=== PATIENT | male | born 1965 | race Two or more races ===

== ENCOUNTER 2016-10-01 17:46 | Emergency (ER) | payer OTHER ==
[~2016-10-01] VITALS: Ht 167.6 cm; Wt 72.6 kg
[~2016-10-01 17:46] MED LIST: AUGMENTIN 875-1 EAC1 ORAL; TYLENOL EXTRA500 MG ORAL
[2016-10-01 18:19] VITALS: BP 128/78
[2016-10-01 18:51] LABS: EOSINOPHILS % (AUTO) 0.5 % (0.0-3.0); LYMPHOCYTES % (AUTO) 18.5 % (20.0-45.0); MEAN CORPUSCULAR HEMOGLOBIN 33.5 PG (27.0-31.0); MEAN CORPUSCULAR HGB CONC 37.3 G/DL (32.0-36.0); MEAN CORPUSCULAR VOLUME 90 FL (80-99); MEAN PLATELET VOLUME 6.8 FL (6.5-10.1); MONOCYTES % (AUTO) 8.2 % (1.0-10.0); NEUTROPHILS % (AUTO) 71.9 % (45.0-75.0); PLATELET COUNT 190 K/UL (150-450); RED BLOOD COUNT 4.13 M/UL (4.70-6.10); RED CELL DISTRIBUTION WIDTH 11.6 % (11.6-14.8); WHITE BLOOD COUNT 16.5 K/UL (4.8-10.8)
[2016-10-01 19:04] LABS: ALANINE AMINOTRANSFERASE 12 U/L (3-41); ALBUMIN/GLOBULIN RATIO 1.1 (1.0-2.7); ANION GAP 15 (5-15); ASPARTATE AMINO TRANSFERASE 13 U/L (5-40); CALCIUM 8.6 mg/dL (8.6-10.2); CARBON DIOXIDE 25 mEQ/L (20-30); CHLORIDE 95 mEQ/L (98-107); CREATININE 0.9 mg/dL (0.7-1.2); GLOMERULAR FILTRATION RATE > 60 mL/min (>60); HEMOLYSIS 4; POTASSIUM 4.2 mEQ/L (3.4-4.9); SODIUM 135 mEQ/L (135-145); TOTAL PROTEIN 6.8 g/dL (6.6-8.7)
[2016-10-01 19:07] LABS: REFLEX LACTIC ACID YES OR NO YES
[2016-10-01 19:13] LABS: APPEARANCE,URINE CLEAR; PH,URINE 5.5 (4.5-8.0)
[2016-10-01 19:14] LABS: CKMB < 1.5 ng/mL (< 6.7); LEUKOCYTE ESTERASE ,URINE TRACE (NEGATIVE); NITRITE,URINE NEGATIVE (NEGATIVE)
[2016-10-01 19:15] LABS: KETONES,URINE NEGATIVE (NEGATIVE); PROTEIN,URINE 1+ (NEGATIVE); UROBILINOGEN,URINE 1 MG/DL (0.0-1.0)
[2016-10-01] MEDS ORDERED: Morphine Sulfate 4mg/ml Inj IVP ONE (19:30)
[2016-10-01 19:36] LABS: BACTERIA,URINE FEW /HPF; SQUAMOUS EPITHELIAL CELL,UR FEW /LPF (NONE/OCC); WBC,URINE 15-20 /HPF (0 - 0)
[2016-10-01 20:27] VITALS: BP 126/60
--- NOTE | 2016-10-01 22:09 | Emergency Room Report ---
History of Present Illness General Chief Complaint: Back Pain-No Injury Source: Patient Present Illness HPI 51-year-old male presents to ED complaining of pain to the right side of the back x3 days. Denies trauma. Notes fevers and chills. Pain is sharp. Out of 10. Nonradiating. No other aggravating relieving factors. Denies dysuria or hematuria. Denies nausea or vomiting. Patient states he is a diabetic. No other aggravating or relieving factors. Denies any other associated symptoms Allergies: Coded Allergies: No Known Allergies (Verified Allergy, Mild, 10/16/07) Patient History Past Medical History: DM Past Surgical History: none Pertinent Family History: none Social History: Denies: alcohol use, drug use, smoking Immunizations: UTD Reviewed Nursing Documentation: PMH: Agreed, PSxH: Agreed Nursing Documentation-PMH Past Medical History: No History, Except For Hx Diabetes: Yes Review of Systems All Other Systems: negative except mentioned in HPI Physical Exam Vital Signs Date Time Temp Pulse Resp B/P Pulse Ox O2 Delivery O2 Flow Rate FiO2 10/01/16 17:59 98.4 88 20 139/80 98 Room Air Sp02 EP Interpretation: reviewed, normal General Appearance: no apparent distress, alert, GCS 15, non-toxic Head: normocephalic Eyes: bilateral eye PERRL, bilateral eye normal inspection ENT: normal ENT inspection Neck: normal inspection Respiratory: chest non-tender, lungs clear, normal breath sounds, speaking full sentences Cardiovascular #1: regular rate, rhythm, no edema Gastrointestinal: normal bowel sounds, non tender, soft, non-distended, no guarding, no rebound Rectal: deferred Genitourinary: no CVA tenderness Musculoskeletal: normal inspection Neurologic: alert, oriented x3, responsive, motor strength/tone normal, sensory intact, speech normal Psychiatric: normal inspection Skin: other - 4x4cm area of induration/erythema to R mid back. nonfluctuant. Lymphatic: normal inspection Medical Decision Making Diagnostic Impression: Primary Impression: Hyperglycemia Additional Impression: Cellulitis, trunk Qualified Codes: L03.312 - Cellulitis of back [any part except buttock] ER Course Hospital Course 75-year-old female presents to ED with redness, swelling to right posterior back. Fever. Elevated blood sugar Differential diagnoses include: Cellulitis, abscess, hyperglycemia, DKA Clinical course Patient placed on stretcher. After initial history and physical I ordered labs , blood Cx, UA, IVFs, CT Abd labs reviewed - leukocytosis, Hb/Hct stable, glucose elevated no DKA CT abdomen shows evidence of induration and stranding to the right posterior back but no evidence of abscess or gas. antibiotics given. Because of insurance patient will be transferred Diagnosis - hyperglycemia, cellulitis of trunk transferred in serious condition Labs Test 10/01/16 18:30 10/01/16 20:09 White Blood Count 16.5 K/UL (4.8-10.8) Red Blood Count 4.13 M/UL (4.70-6.10) Hemoglobin 13.8 G/DL (14.2-18.0) Hematocrit 37.1 % (42.0-52.0) Mean Corpuscular Volume 90 FL (80-99) Mean Corpuscular Hemoglobin 33.5 PG (27.0-31.0) Mean Corpuscular Hemoglobin Concent 37.3 G/DL (32.0-36.0) Red Cell Distribution Width 11.6 % (11.6-14.8) Platelet Count 190 K/UL (150-450) Mean Platelet Volume 6.8 FL (6.5-10.1) Neutrophils (%) (Auto) 71.9 % (45.0-75.0) Lymphocytes (%) (Auto) 18.5 % (20.0-45.0) Monocytes (%) (Auto) 8.2 % (1.0-10.0) Eosinophils (%) (Auto) 0.5 % (0.0-3.0) Basophils (%) (Auto) 1.0 % (0.0-2.0) Urine Color Yellow Urine Appearance Clear Urine pH 5.5 (4.5-8.0) Urine Specific [place] 1.010 (1.005-1.035) Urine Protein 1+ (NEGATIVE) Urine Glucose (UA) 4+ (NEGATIVE) Urine Ketones Negative (NEGATIVE) Urine Occult Blood Negative (NEGATIVE) Urine Nitrite Negative (NEGATIVE) Urine Bilirubin Negative (NEGATIVE) Urine Urobilinogen 1 MG/DL (0.0-1.0) Urine Leukocyte Esterase Trace (NEGATIVE) Urine RBC 2-4 /HPF (0 - 0) Urine WBC 15-20 /HPF (0 - 0) Urine Squamous Epithelial Cells Few /LPF (NONE/OCC) Urine Bacteria Few /HPF (NONE) Sodium Level 135 mEQ/L (135-145) Potassium Level 4.2 mEQ/L (3.4-4.9) Chloride Level 95 mEQ/L (98-107) Carbon Dioxide Level 25 mEQ/L (20-30) Anion Gap 15 (5-15) Blood Urea Nitrogen 18 mg/dL (7-23) Creatinine 0.9 mg/dL (0.7-1.2) Estimat Glomerular Filtration Rate > 60 mL/min (>60) Glucose Level 398 mg/dL (74-106) Lactic Acid Level 2.10 mmol/L (0.66-2.22) 1.70 mmol/L (0.66-2.22) Calcium Level 8.6 mg/dL (8.6-10.2) Total Bilirubin 0.5 mg/dL (0.0-1.2) Aspartate Amino Transf (AST/SGOT) 13 U/L (5-40) Alanine Aminotransferase (ALT/SGPT) 12 U/L (3-41) Alkaline Phosphatase 100 U/L (40-129) Creatine Kinase MB < 1.5 ng/mL (< 6.7) Total Protein 6.8 g/dL (6.6-8.7) Albumin 3.6 g/dL (3.5-5.2) Globulin 3.2 g/dL Albumin/Globulin Ratio 1.1 (1.0-2.7) Acetone Level Negative (NEGATIVE) CT/MRI/US Diagnostic Results CT/MRI/US Diagnostic Results : Imaging Test Ordered: CT Abd Impression Stranding/induration of the right posterior back centered into subcutaneous tissue. No drainable abscess or soft tissue gas at this time Last Vital Signs Date Time Temp Pulse Resp B/P Pulse Ox O2 Delivery O2 Flow Rate FiO2 10/01/16 18:19 98.2 78 18 128/78 99 Room Air Status: improved Disposition: XFER SHT-TRM HOSP Condition: Serious Referrals: [facility],REFERR[facility] (PCP) RON REBOLLAR M.D. Oct 01, 2016 22:09
--- NOTE | 2016-10-02 09:11 | Diagnostic Imaging Report ---
Indications: Pain, swelling, erythema right mid back Technique: Continuous helical CT imaging of the abdomen was performed with automatic exposure control following administration of nonionic IV contrast only, on a Siemens sensation [address] scanner. Axial and coronal images were reconstructed at 5 mm slice thickness. No oral contrast was administered per requesting physician's order, . CTDI volume(s): 18 mGy Total DLP: 724 mGy-cm Findings: Comparison: None The subcutaneous soft tissues of the posterior right flank beginning at approximately the level of T10-11 and extending to approximately the L3-4 level are asymmetrically swollen and increased in attenuation with an approximately 6 x 2 x 5 cm area of somewhat circumscribed increased density. Thin curvilinear focus of increased density traverses the area of abnormality in a radial orientation (3-27). No associated gas. Overlying skin thickened. Process extends to the margin of the right posterior paraspinous musculature. Muscular involvement not excludable. No extension to underlying retroperitoneum. Remainder of the bowel wall soft tissues unremarkable. Subcentimeter circumscribed low attenuation foci right renal cortex up further characterizable. Liver, gallbladder, pancreas, spleen, adrenal glands, left kidney, unopacified small ureters, vascular structures, retroperitoneum, mesentery, imaged unopacified portions of gastrointestinal tract, remainder visualized abdominal anatomy is remarkable. Small irregular pleural-based linear and patchy opacities in the dependent portions both lung bases. No adjacent pleural abnormality. Multilevel disc space narrowing with marginal osteophyte formation, vacuum phenomenon and lumbar, lower thoracic spine. Suggestion of significant spinal stenosis at L4-5. No fracture or, lytic destructive process or other acute skeletal abnormality identified. IMPRESSION: Nonspecific, almost masslike increased attenuation in the subcutaneous soft tissues of posterior right flank, may be traumatic, inflammatory, or a combination. No discretely definable abscess demonstrated at this time. Associated linear focus of increased attenuation as described, nonspecific, may represent residuum of penetrating trauma. Correlate clinically. Involvement of underlying right posterior paraspinous musculature not excludable. No other evidence of acute abdominal disease, with limitation as described. Subtle but potentially significant abnormalities may be missed. Repeat CT scan with full oral and IV contrast preparation recommended for more complete evaluation, as clinically indicated Right renal cortical foci nonspecific, most likely cysts Pulmonary bibasal parenchymal opacities, nonspecific, most likely atelectatic Degenerative spondylosis with apparent spinal stenosis at L4-[address] Bustillo's preliminary report.
== END 2016-10-01 20:27 | disposition short-term general hospital (02) ==
LOC: EMR 18:28
DX: L03.312 Cellulitis of back [any part except buttock and flank] (principal); E11.65 Type 2 diabetes mellitus with hyperglycemia; D72.829 Elevated white blood cell count, unspecified
CPT/HCPCS: 36415; 74160; 80053; 81003; 82009; 82553; 82962; 83605; 85025; 87040; 87086; 96361; 96374; 96375; 99285; J2270; Q9967; S0077

== ENCOUNTER 2016-10-24 18:26 | Emergency (ER) | payer OTHER ==
[~2016-10-24] VITALS: Ht 167.6 cm; Wt 80.7 kg
[2016-10-24 18:32] VITALS: BP 116/70
[2016-10-24] MEDS ORDERED: LANTUS SOL100 UNIT/1 SUBQ (18:36)
[2016-10-24] MEDS ORDERED: Lidocaine 2% Visc 15ml soln ORAL ONE (19:00)
--- NOTE | 2016-10-24 20:24 | Emergency Room Report ---
History of Present Illness General Chief Complaint: Sore Throat Source: Patient Present Illness HPI 2 days of throat pain. Pain with swallowing which is severe. Slight change in voice. Able to tolerate liquids. Some fever and myalgias. No productive cough. No NVD, dysuria. No rashes. Mild headache. No chest pain. States glucose is "normal". Takes lantis once at night. No polies. Allergies: Coded Allergies: No Known Allergies (Verified Allergy, Mild, 10/16/07) Patient History Past Medical History: see triage record Social History: Denies: smoking Social History Narrative employed Reviewed Nursing Documentation: PMH: Agreed, PSxH: Agreed Nursing Documentation-PMH Past Medical History: No History, Except For Hx Diabetes: Yes Review of Systems All Other Systems: negative except mentioned in HPI Physical Exam Vital Signs Date Time Temp Pulse Resp B/P Pulse Ox O2 Delivery O2 Flow Rate FiO2 10/24/16 18:32 98.4 87 16 116/70 97 Room Air Sp02 EP Interpretation: reviewed, normal General Appearance: well appearing, no apparent distress, GCS 15 Head: normocephalic Eyes: bilateral eye PERRL, bilateral eye normal inspection ENT: hearing grossly normal, normal voice, TMs + canals normal, uvula midline, moist mucus membranes, tonsillar swelling, pharyngeal erythema, other - 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 Neck: full range of motion, supple, no bony tend Respiratory: chest non-tender, lungs clear, normal breath sounds Cardiovascular #1: regular rate, rhythm Cardiovascular #2: 2+ radial (R) Gastrointestinal: normal inspection, non tender, soft Musculoskeletal: back normal, gait/station normal, normal range of motion Neurologic: alert, oriented x3, grossly normal Psychiatric: mood/affect normal Skin: normal inspection, warm/dry Medical Decision Making Diagnostic Impression: Primary Impression: Pharyngitis Qualified Codes: J02.9 - Acute pharyngitis, unspecified Additional Impression: Hyperglycemia ER Course Patient with severe throat pain and fever. DDx: viral, strep. 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 As diabetic, need to check accucheck. Also, patient will be treated with antibiotics and decadron. Will give trial of viscous lidocaine. More complicated as h/o diabetes. Accucheck 342 here. Given NovoLog here. As giving steroids, advised that glucose might be elevated. Improved with treatment with decreased pain. Patient stable for outpatient observation and treatment. EKG Diagnostic Results ST Segments: other - NSSTTW changes, not STEMI Rhythm Strip Diag. Results EP Interpretation: yes Rhythm: no ectopy Last Vital Signs Date Time Temp Pulse Resp B/P Pulse Ox O2 Delivery O2 Flow Rate FiO2 10/24/16 20:41 84 14 114/74 96 Room Air 10/24/16 18:32 98.4 Status: improved Disposition: HOME, SELF-CARE Condition: Improved Scripts Ibuprofen* (MOTRIN*) 600 Mg Tablet 600 MG ORAL Q6H Y for For Pain, #12 TAB Prov: Phill Cisneros M.D. 10/24/16 Lidocaine HCl (Lidocaine HCl Viscous) 100 Ml Solution 10 ML PO Q6HR Y for throat pain, #60 ML Prov: Phill Cisneros M.D. 10/24/16 Amoxicillin/Potassium Clav 500-125 Tablet* (AUGMENTIN 500-125 TABLET*) 1 Each Tablet 1 TAB ORAL THREE TIMES A DAY, #21 TAB Prov: Phill Cisneros M.D. 10/24/16 Referrals: [facility],REFERR[facility] (PCP) Phill Cisneros M.D. Oct 24, 2016 20:24
[2016-10-24] MEDS ORDERED: LIDOCAINE VISCO20 ML PO (20:31)
[2016-10-24] MEDS ORDERED: IBUPROFEN600 MG ORAL (20:31)
[2016-10-24] MEDS ORDERED: AUGMENTIN 500-1 EACH ORAL (20:31)
[2016-10-24 20:41] VITALS: BP 114/74
== END 2016-10-24 20:41 | disposition home or self-care (01) ==
LOC: EMR 19:34
DX: J02.9 Acute pharyngitis, unspecified (principal); E11.65 Type 2 diabetes mellitus with hyperglycemia
CPT/HCPCS: 82962; 99284; J1815; J8540

== ENCOUNTER 2017-02-07 16:31 | Inpatient (IN) | payer OTHER ==
[~2017-02-07] VITALS: Ht 167.6 cm; Wt 78.5 kg
[~2017-02-07 16:31] MED LIST changes: +AUGMENTIN 500-1 EACH ORAL; +IBUPROFEN600 MG ORAL; +LANTUS SOL100 UNIT/1 SUBQ; +LIDOCAINE VISCO20 ML PO
[2017-02-07] MEDS ORDERED: Vancomycin 1.5 GM in D5W 325 ML IVPB STA (16:40)
[2017-02-07] MEDS ORDERED: Piperacillin/Tazobactam 3.375 GM in NS 110 ML IVPB ONE (16:45)
[2017-02-07 17:25] VITALS: BP 142/82
[2017-02-07] MEDS ORDERED: fentaNYL 100 mcg/2 mL IV ONE (17:30)
[2017-02-07] MEDS ORDERED: Vancomycin 1gm inj IVPB ONE (17:35)
--- NOTE | 2017-02-07 17:35 | Emergency Room Report ---
History of Present Illness General Chief Complaint: Abnormal Labs Source: Patient Present Illness HPI 51YOM walk-in with 2 days abd pain, fever/chills, nausea/vomiting. Didnt take Insulin/metformin for 1 week because "ran out of prescription." Denies chest pain, SOB, headache, urinary complaints, diarrhea. Sent by PMD for "glucose >2000" and abd pain with "+ obturator and psoas sign." Allergies: Coded Allergies: No Known Allergies (Verified Allergy, Mild, 10/16/07) Patient History Past Medical History: DM, HTN, other - HLD Past Surgical History: none Pertinent Family History: none Social History: Denies: alcohol use, drug use, smoking Immunizations: UTD Reviewed Nursing Documentation: PMH: Agreed, PSxH: Agreed Nursing Documentation-PMH Hx Diabetes: Yes Review of Systems All Other Systems: negative except mentioned in HPI Physical Exam Vital Signs Date Time Temp Pulse Resp B/P Pulse Ox O2 Delivery O2 Flow Rate FiO2 02/07/17 16:39 101.3 101 24 115/62 93 Room Air Sp02 EP Interpretation: reviewed, abnormal General Appearance: normal inspection, well appearing, no apparent distress, alert, GCS 15, non-toxic Head: normocephalic, atraumatic Eyes: bilateral eye EOMI, bilateral eye PERRL ENT: normal ENT inspection, hearing grossly normal, normal voice Neck: normal inspection, full range of motion, supple, no bony tend Respiratory: normal inspection, lungs clear, normal breath sounds, no respiratory distress, no retraction, no wheezing Cardiovascular #1: regular rate, rhythm, no edema Gastrointestinal: normal inspection, normal bowel sounds, soft, no guarding, no hernia, other - epigastric ttp Genitourinary: no CVA tenderness Musculoskeletal: normal inspection, back normal, normal range of motion, Summer' s Sign negative Neurologic: normal inspection, alert, oriented x3, responsive, environmental remediation consultant III-XII nml as tested, motor strength/tone normal, DTRs symmetric, speech normal Psychiatric: normal inspection, judgement/insight normal, mood/affect normal Skin: normal inspection, normal color, no rash Lymphatic: normal inspection Medical Decision Making Diagnostic Impression: Primary Impression: Hyperglycemia Additional Impression: Fever Qualified Codes: R50.9 - Fever, unspecified ER Course Fever - Tachycardia resolved with anaglesia, IVF, Abx - No obvious source on CXR, UA and CTAP - No leuks on lab - Empiric Abx given - Blood, Urine Cx pending Hyperglycemia - bicarb, K normal - Mild AG - Insulin and NS given ECG is NSR. Trop 0. Endorsed to Dr Arias at 713pm for tele admission EKG Diagnostic Results Rate: normal Rhythm: NSR ST Segments: no acute changes ASA given to the pt in ED: No Rhythm Strip Diag. Results EP Interpretation: yes Rate: 90 Rhythm: NSR, no PVC's, no ectopy Chest X-Ray Diagnostic Results Chest X-Ray Ordered: Yes # of Views/Limited/Complete: 1 View Interpretation: no consolidation Indication: Other - fever Impression: No acute disease Date Electronically Signed: Feb 07, 2017 Time Electronically Signed: 19:13 Interpreting ER Physician: Julissa Last Vital Signs Date Time Temp Pulse Resp B/P Pulse Ox O2 Delivery O2 Flow Rate FiO2 02/07/17 16:39 101.3 101 24 115/62 93 Room Air Status: improved Disposition: ADMITTED INPATIENT Condition: Serious ANNABELLE REYNOSO M.D. Feb 07, 2017 17:35
[2017-02-07] MEDS ORDERED: Zosyn 3.375gm inj ONE (17:36)
[2017-02-07 17:40] LABS: APPEARANCE,URINE CLEAR; KETONES,URINE 2+ (NEGATIVE); LEUKOCYTE ESTERASE ,URINE 1+ (NEGATIVE); NITRITE,URINE NEGATIVE (NEGATIVE); PH,URINE 5 (4.5-8.0); PROTEIN,URINE 2+ (NEGATIVE); UROBILINOGEN,URINE NORMAL MG/DL (0.0-1.0)
[2017-02-07 17:47] LABS: BASOPHILS % (AUTO) 2.4 % (0.0-2.0); EOSINOPHILS % (AUTO) 0.6 % (0.0-3.0); LYMPHOCYTES % (AUTO) 20.3 % (20.0-45.0); MEAN CORPUSCULAR HEMOGLOBIN 31.1 PG (27.0-31.0); MEAN CORPUSCULAR HGB CONC 35.3 G/DL (32.0-36.0); MEAN CORPUSCULAR VOLUME 88 FL (80-99); MONOCYTES % (AUTO) 11.8 % (1.0-10.0); NEUTROPHILS % (AUTO) 64.9 % (45.0-75.0); PLATELET COUNT 115 K/UL (150-450); RED CELL DISTRIBUTION WIDTH 11.3 % (11.6-14.8)
[2017-02-07 17:55] LABS: TROPONIN I < 0.30 ng/mL (<=0.30)
[2017-02-07 17:56] LABS: ALANINE AMINOTRANSFERASE 30 U/L (3-41); ALBUMIN/GLOBULIN RATIO 1.1 (1.0-2.7); ANION GAP 19 (5-15); ASPARTATE AMINO TRANSFERASE 33 U/L (5-40); CALCIUM 8.1 mg/dL (8.6-10.2); CARBON DIOXIDE 20 mEQ/L (20-30); CHLORIDE 88 mEQ/L (98-107); GLOMERULAR FILTRATION RATE > 60 mL/min (>60); HEMOLYSIS 49; LIPASE 35 U/L (< 60); SODIUM 127 mEQ/L (135-145)
[2017-02-07 18:17] LABS: RBC,URINE 0-2 /HPF (0 - 0); WBC,URINE 0-2 /HPF (0 - 0)
[2017-02-07 18:18] LABS: SQUAMOUS EPITHELIAL CELL,UR FEW /LPF (NONE/OCC)
[2017-02-07 19:25] VITALS: BP 137/79
[2017-02-07] MEDS ORDERED: Ketorolac 30mg Inj IV PRN (19:30)
[2017-02-07] MEDS ORDERED: Miralax 17gm pkt ORAL PRN (19:30)
[2017-02-07] MEDS ORDERED: Nitroglycerin Subl 0.4mg tab (Bottle Of 25) SL PRN (19:30)
[2017-02-07] MEDS ORDERED: Mylanta II UD 30ml ORAL PRN (19:30)
[2017-02-07] MEDS ORDERED: DuoNeb 0.5-3(2.5)mg/3ml neb HHN PRN (19:30)
[2017-02-07] MEDS ORDERED: Morphine Sulfate 2mg/ml Inj IVP PRN (19:30)
[2017-02-07 20:39] VITALS: BP 150/76
[2017-02-07] MEDS: Heparin 5000 units/ml inj SUBQ SCH (21:00)
[2017-02-07 22:37] VITALS: BP 140/80
[2017-02-07] MEDS: NovoLOG Insulin Flexpen SUBQ SCH (23:32)
[2017-02-07] MEDS: cefTRIAXone 2 GM in NS 110 ML IV SCH (23:53)
[2017-02-08] VITALS: BP 144/84
[2017-02-08 04:00] VITALS: BP 127/69
[2017-02-08] MEDS: NovoLOG Insulin Flexpen SUBQ SCH ×4 (06:34→21:58)
[2017-02-08 06:42] LABS: MEAN CORPUSCULAR HEMOGLOBIN 32.4 PG (27.0-31.0); MEAN CORPUSCULAR HGB CONC 36.4 G/DL (32.0-36.0); MEAN CORPUSCULAR VOLUME 89 FL (80-99); MEAN PLATELET VOLUME 7.8 FL (6.5-10.1); PLATELET COUNT 94 K/UL (150-450); RED BLOOD COUNT 4.16 M/UL (4.70-6.10); RED CELL DISTRIBUTION WIDTH 11.4 % (11.6-14.8); WHITE BLOOD COUNT 4.5 K/UL (4.8-10.8)
[2017-02-08 07:13] LABS: HEMOGLOBIN A1C 11.2 % (< 6.0)
[2017-02-08 07:19] LABS: ALANINE AMINOTRANSFERASE 26 U/L (3-41); ALBUMIN/GLOBULIN RATIO 1.2 (1.0-2.7); ANION GAP 16 (5-15); ASPARTATE AMINO TRANSFERASE 28 U/L (5-40); CALCIUM 7.7 mg/dL (8.6-10.2); CARBON DIOXIDE 22 mEQ/L (20-30); CHLORIDE 96 mEQ/L (98-107); CHOLESTEROL 125 mg/dL (< 200); CHOLESTEROL/HDL RATIO 4.5 (3.3-4.4); CREATININE 0.9 mg/dL (0.7-1.2); GLOMERULAR FILTRATION RATE > 60 mL/min (>60); HEMOLYSIS 5; LDL CHOLESTEROL (CALC.) 65 mg/dL (60-99); POTASSIUM 3.7 mEQ/L (3.4-4.9); SODIUM 134 mEQ/L (135-145); TOTAL PROTEIN 6.5 g/dL (6.6-8.7)
[2017-02-08 07:20] LABS: THYROID STIMULATING HORMONE 0.361 uIU/mL (0.300-4.500)
[2017-02-08 08:00] VITALS: BP 132/70
[2017-02-08] MEDS: Heparin 5000 units/ml inj SUBQ SCH ×2 (08:01→21:00)
--- NOTE | 2017-02-08 09:29 | Diagnostic Imaging Report ---
Indication: Abdominal pain Technique: CT of the abdomen and pelvis utilizing automated exposure control with intravenous contrast. Venous scanning performed. CT dose: Total DLP 1026 mGycm; CTDI vol 18.2 mGy Comparison: 10/01/16 Findings: There is atelectasis in the lung bases. The liver, adrenal glands, spleen and pancreas are grossly unremarkable. Gallbladder is mildly contracted without CT evident gallstones. Tiny hypodensity of the right renal cortex measuring 4 mm this too small to characterize but unchanged. Small areas of apparent cortical scarring are noted in the bilateral kidneys. There is no hydronephrosis. No renal or ureteral calculi are seen. Abdominal aorta is normal in caliber. The small bowel loops are normal in caliber. The appendix is normal. There is no free intraperitoneal fluid or air. Bladder is grossly unremarkable. Subcutaneous stranding of the right flank has decreased. No gross soft tissue fluid collections are identified. Degenerative changes of the spine are again present. Impression: Interval improvement with minimal residual of stranding involving the subcutaneous soft tissues of the right flank. No drainable soft tissue fluid collection. Clinical correlation recommended. Stable intra-abdominal appearance as above. Lung base atelectasis. Degenerative changes of the spine. The CT scanner at [facility] is accredited by the [employer] and the scans are performed using protocols designed to limit radiation exposure to as low as reasonably achievable to attain images of sufficient resolution adequate for diagnostic evaluation.
--- NOTE | 2017-02-08 09:40 | Diagnostic Imaging Report ---
Indication: Chest pain Technique: XRAY CHEST 1 V Comparison: 04/30/12 Findings: The cardiomediastinal silhouette is within normal limits. There is no focal consolidation, pneumothorax or pleural effusion. Osseous structures demonstrate no acute abnormality. Impression: No acute cardiopulmonary disease.
[2017-02-08 12:00] VITALS: BP 112/67
--- NOTE | 2017-02-08 12:38 | History and Physical ---
History of Present Illness General Date patient seen: Feb 08, 2017 Time patient seen: 11:30 Reason for Hospitalization: Abnormal Labs Present Illness HPI 51y/old patient walked-in with 2 days of abdominal pain, fever/chills, nausea/ vomiting. No BM for 2 days Didn't take Insulin/metformin for 1 week because he "ran out of prescription." Denied chest pain, SOB, headache, urinary complaints, diarrhea. Sent by PMD for "glucose >2000" and abd pain with "+ obturator and psoas sign." Workup in ED revealed fever 102, tachypnea, tachycardia, no leukocytosis Na-127 BS -369, stable bicarb, mild elevation in anion gap, +2 ketones in urine, K stable UA negative for evidence of UTI, CXR negative for acute cardiopulmonary pathology CTAP-Interval improvement with minimal residual of stranding involving the subcutaneous soft tissues of the right flank. No drainable soft tissue fluid collection. No evidence of appy- Lung base atelectasis. patient was given IVF, pancultured, started on empiric abx, analgesia provided in ED tachycardia resolved troponin negative ECG with NSR, no ischemic changes patient was admitted for further management Allergies: Coded Allergies: No Known Allergies (Verified Allergy, Mild, 10/16/07) Medication History Scheduled Amoxicillin/Potassium Clav 500-125 Tablet* (Augmentin 500-125 Tablet*), 1 TAB ORAL THREE TIMES A DAY Amoxicillin/Potassium Clav 875-125* (Augmentin 875-125 Tablet*), 1 TAB ORAL TWICE A DAY Insulin Glargine (Lantus), 20 UNITS SUBQ BEDTIME, (Reported) Scheduled PRN Acetaminophen* (Tylenol Extra Strength*), 500 MG ORAL Q8H PRN for Prn Headache/ Temp > 101 Ibuprofen* (Motrin*), 600 MG ORAL Q6H PRN for For Pain Lidocaine HCl (Lidocaine HCl Viscous), 10 ML PO Q6HR PRN for throat pain Patient History Healthcare decision maker Resuscitation status Full Code Advanced Directive on File Past Medical/Surgical History Past Medical/Surgical History: (1) Hyperlipidemia (2) Diabetes (3) HTN (hypertension) Review of Systems Constitutional: Reports: fever Eye: Reports: no symptoms ENT: Reports: no symptoms Respiratory: Reports: no symptoms Cardiovascular: Reports: other - hx of HTN Gastrointestinal: Reports: see HPI Genitourinary: Reports: no symptoms Musculoskeletal: Reports: no symptoms Skin: Reports: no symptoms Psychiatric: Reports: no symptoms Neurological: Reports: no symptoms Endocrine: Reports: other - diabetes Hematologic/Lymphatic: Reports: no symptoms Physical Exam General Appearance: WD/WN, no apparent distress, alert - A/A/O x 3 Lines, tubes and drains: peripheral HEENT: normocephalic, atraumatic, anicteric, PERRL Neck: non-tender, supple Respiratory/Chest: chest wall non-tender, lungs clear, no respiratory distress , no accessory muscle use Cardiovascular/Chest: regular rhythm, regularly irregular, no JVD Abdomen: normal bowel sounds, soft - mild tenderness in epigastric area 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, no motor/sensory deficits, alert, oriented x 3, responsive - Hungarian speaking , normal mood/affect Musculoskeletal: normal muscle bulk Last 24 Hour Vital Signs Date Time Temp Pulse Resp B/P Pulse Ox O2 Delivery O2 Flow Rate FiO2 02/08/17 09:21 100.4 02/08/17 08:00 100.8 78 18 132/70 Nasal Cannula 2.0 02/08/17 08:00 85 02/08/17 07:31 86 18 Room Air 02/08/17 04:00 100.2 82 20 127/69 96 Room Air 82 02/08/17 04:00 85 02/08/17 00:00 100.6 88 20 144/84 96 Room Air 02/07/17 23:07 91 02/07/17 22:40 82 20 140/80 95 Room Air 02/07/17 22:37 99.4 82 20 140/80 95 Room Air 02/07/17 20:39 85 21 150/76 96 Room Air 02/07/17 19:25 99.0 71 20 137/79 97 Room Air 02/07/17 19:20 85 18 Room Air 02/07/17 17:25 102.0 80 15 142/82 97 Room Air 02/07/17 16:39 101.3 101 24 115/62 93 Room Air Intake and Output 02/07/17 02/08/17 19:00 07:00 Intake Total 820 ml Output Total 1100 ml Balance -280 ml Intake Oral 0 ml IV Total 820 ml Output Urine Total 1100 ml # Voids 1 Laboratory Tests Test 02/07/17 17:16 02/08/17 04:45 White Blood Count 5.0 K/UL (4.8-10.8) 4.5 K/UL (4.8-10.8) L Red Blood Count 4.30 M/UL (4.70-6.10) L 4.16 M/UL (4.70-6.10) L Hemoglobin 13.4 G/DL (14.2-18.0) L 13.5 G/DL (14.2-18.0) L Hematocrit 37.9 % (42.0-52.0) L 37.1 % (42.0-52.0) L Mean Corpuscular Volume 88 FL (80-99) 89 FL (80-99) Mean Corpuscular Hemoglobin 31.1 PG (27.0-31.0) H 32.4 PG (27.0-31.0) H Mean Corpuscular Hemoglobin Concent 35.3 G/DL (32.0-36.0) 36.4 G/DL (32.0-36.0) H Red Cell Distribution Width 11.3 % (11.6-14.8) L 11.4 % (11.6-14.8) L Platelet Count 115 K/UL (150-450) L 94 K/UL (150-450) L Mean Platelet Volume 7.0 FL (6.5-10.1) 7.8 FL (6.5-10.1) Neutrophils (%) (Auto) 64.9 % (45.0-75.0) % (45.0-75.0) Lymphocytes (%) (Auto) 20.3 % (20.0-45.0) % (20.0-45.0) Monocytes (%) (Auto) 11.8 % (1.0-10.0) H % (1.0-10.0) Eosinophils (%) (Auto) 0.6 % (0.0-3.0) % (0.0-3.0) Basophils (%) (Auto) 2.4 % (0.0-2.0) H % (0.0-2.0) Urine Color Pale yellow Urine Appearance Clear Urine pH 5 (4.5-8.0) Urine Specific [place] 1.015 (1.005-1.035) Urine Protein 2+ (NEGATIVE) H Urine Glucose (UA) 4+ (NEGATIVE) H Urine Ketones 2+ (NEGATIVE) H Urine Occult Blood 1+ (NEGATIVE) H Urine Nitrite Negative (NEGATIVE) Urine Bilirubin Negative (NEGATIVE) Urine Urobilinogen Normal MG/DL (0.0-1.0) Urine Leukocyte Esterase 1+ (NEGATIVE) H Urine RBC 0-2 /HPF (0 - 0) H Urine WBC 0-2 /HPF (0 - 0) Urine Squamous Epithelial Cells Few /LPF (NONE/OCC) Urine Bacteria None /HPF (NONE) Sodium Level 127 mEQ/L (135-145) L 134 mEQ/L (135-145) L Potassium Level 4.0 mEQ/L (3.4-4.9) 3.7 mEQ/L (3.4-4.9) Chloride Level 88 mEQ/L (98-107) L 96 mEQ/L (98-107) L Carbon Dioxide Level 20 mEQ/L (20-30) 22 mEQ/L (20-30) Anion Gap 19 (5-15) H 16 (5-15) H Blood Urea Nitrogen 20 mg/dL (7-23) 13 mg/dL (7-23) Creatinine 1.0 mg/dL (0.7-1.2) 0.9 mg/dL (0.7-1.2) Estimat Glomerular Filtration Rate > 60 mL/min (>60) > 60 mL/min (>60) Glucose Level 369 mg/dL (74-106) H 258 mg/dL (74-106) #H Lactic Acid Level 1.40 mmol/L (0.66-2.22) Calcium Level 8.1 mg/dL (8.6-10.2) L 7.7 mg/dL (8.6-10.2) L Total Bilirubin 0.4 mg/dL (0.0-1.2) 0.3 mg/dL (0.0-1.2) Aspartate Amino Transf (AST/SGOT) 33 U/L (5-40) 28 U/L (5-40) Alanine Aminotransferase (ALT/SGPT) 30 U/L (3-41) 26 U/L (3-41) Alkaline Phosphatase 98 U/L (40-129) 78 U/L (40-129) Troponin I < 0.30 ng/mL (<=0.30) Total Protein 7.0 g/dL (6.6-8.7) 6.5 g/dL (6.6-8.7) L Albumin 3.7 g/dL (3.5-5.2) 3.6 g/dL (3.5-5.2) Globulin 3.3 g/dL 2.9 g/dL Albumin/Globulin Ratio 1.1 (1.0-2.7) 1.2 (1.0-2.7) Lipase 35 U/L (< 60) Hemoglobin A1c 11.2 % (< 6.0) H Triglycerides Level 158 mg/dL (< 150) H Cholesterol Level 125 mg/dL (< 200) LDL Cholesterol 65 mg/dL (60-99) HDL Cholesterol 28 mg/dL (> 60) Cholesterol/HDL Ratio 4.5 (3.3-4.4) H Thyroid Stimulating Hormone (TSH) 0.361 uIU/mL (0.300-4.500) Height (Feet): 5 Height (Inches): 6.00 Weight (Pounds): 173 Medications Current Medications Medications (Trade) Dose Ordered Sig/Lm Route PRN Reason Start Time Stop Time Status Last Admin Dose Admin Acetaminophen (Tylenol) 650 mg Q4H PRN ORAL fever 02/07/17 19:30 03/09/17 19:29 02/08/17 08:22 Al Hydroxide/Mg Hydroxide (Mylanta II) 30 ml Q6H PRN ORAL dyspepsia 02/07/17 19:30 03/09/17 19:29 Albuterol/ Ipratropium (DuoNeb 0.5-3(2.5)mg/3ml) 3 ml Q4H PRN HHN Shortness of Breath 02/07/17 19:30 02/12/17 19:29 Ceftriaxone Sodium/Sodium Chloride (Rocephin/Sodium Chloride) 110 ml @ 220 mls/hr Q24H IV 02/07/17 21:00 02/14/17 20:59 02/07/17 23:53 Clonidine HCl 0.1 mg 0.1 mg Q4H PRN ORAL sbp more than 160 02/07/17 19:30 03/09/17 19:29 Dextrose (Dextrose 50%) STAT PRN IV Hypoglycemia 02/07/17 19:30 03/09/17 19:29 Heparin Sodium (Porcine) (Heparin 5000 units/ml) 5,000 units EVERY 12 HOURS SUBQ 02/07/17 21:00 03/09/17 20:59 Insulin Aspart (NovoLOG) BEFORE MEALS AND HS SUBQ 02/07/17 21:00 03/09/17 20:59 02/08/17 11:58 Ketorolac Tromethamine (Toradol 30mg) 30 mg Q6H PRN IV moderate pain 4-6 02/07/17 19:30 02/12/17 19:29 Morphine Sulfate (Morphine Sulfate) 2 mg Q4H PRN IVP severe pain 7-10 02/07/17 19:30 02/14/17 19:29 Nitroglycerin (Ntg) 0.4 mg Q5M X 3 DOSES PRN SL Prn Chest Pain 02/07/17 19:30 03/09/17 19:29 Ondansetron HCl (Zofran) 4 mg Q6H PRN IVP Nausea & Vomiting 02/07/17 19:30 03/09/17 19:29 Polyethylene Glycol (Miralax) 17 gm HSPRN PRN ORAL Constipation 02/07/17 19:30 03/09/17 19:29 Sodium Chloride (Sodium Chloride 1000ml bag) 1,000 ml @ 100 mls/hr Q10H IVLG 02/07/17 19:30 03/09/17 19:29 02/08/17 05:30 Temazepam (Restoril) 15 mg HSPRN PRN ORAL Insomnia 02/07/17 19:30 02/14/17 19:29 Assessment/Plan Assessment/Plan ASSESSMENT possible sepsis/SIRS fevers hyperglycemia DOOC acute hyponatremia HTN hyperlipemia PLAN OF CARE IVF empiric abx ID consult, no obvious source of fever BS management with Levemir and SS of insulin , optimize as needed endo eval HgbA1c - 11.2 not at goal hyponatremia likely depletional, monitor lytes, K stable lipid panel pain management DVT GI prophylaxis CT A/P negative abdominal pain possibly related to hyperglycemia, symptomatic treatment declined ETOH abuse BP management, add low dose of ADRIANA DVT GI prophayxlis bowel regimen a/emetic prn case discussed and evaluated by supervising physician Abdias Cantu)Colette NP Feb 08, 2017 12:38
[2017-02-08] MEDS ORDERED: Levemir Flexpen SUBQ SCH (14:00)
[2017-02-08] MEDS ORDERED: Bisacodyl EC 5mg tab ORAL ONE (14:00)
[2017-02-08] MEDS: Vancomycin 1250mg in D5W 275ml IVPB SCH (14:55)
[2017-02-08] MEDS ORDERED: Tubing IV Secondary IV ONE (15:57)
[2017-02-08 16:00] VITALS: BP 143/73
[2017-02-08] MEDS: Docusate 100mg cap ORAL SCH (17:06)
[2017-02-08 20:00] VITALS: BP 139/80
[2017-02-08] MEDS: cefTRIAXone 2 GM in NS 110 ML IV SCH (21:56)
[2017-02-09] VITALS: BP 148/79
[2017-02-09] MEDS: Vancomycin 1250mg in D5W 275ml IVPB SCH (03:08)
[2017-02-09 04:00] VITALS: BP 124/65
[2017-02-09] MEDS: NovoLOG Insulin Flexpen SUBQ SCH ×4 (06:27→20:36)
[2017-02-09 07:07] LABS: ANION GAP 13 (5-15); CALCIUM 7.7 mg/dL (8.6-10.2); CARBON DIOXIDE 24 mEQ/L (20-30); CHLORIDE 93 mEQ/L (98-107); CREATININE 0.9 mg/dL (0.7-1.2); GLOMERULAR FILTRATION RATE > 60 mL/min (>60); HEMOLYSIS 3; POTASSIUM 3.9 mEQ/L (3.4-4.9); SODIUM 130 mEQ/L (135-145)
[2017-02-09 07:20] LABS: MEAN CORPUSCULAR HEMOGLOBIN 30.8 PG (27.0-31.0); MEAN CORPUSCULAR HGB CONC 34.5 G/DL (32.0-36.0); MEAN CORPUSCULAR VOLUME 89 FL (80-99); MEAN PLATELET VOLUME 9.1 FL (6.5-10.1); PLATELET COUNT 80 K/UL (150-450); RED BLOOD COUNT 4.34 M/UL (4.70-6.10); RED CELL DISTRIBUTION WIDTH 11.4 % (11.6-14.8); WHITE BLOOD COUNT 3.8 K/UL (4.8-10.8)
[2017-02-09] MEDS: Docusate 100mg cap ORAL SCH (08:03)
[2017-02-09] MEDS: Heparin 5000 units/ml inj SUBQ SCH (08:04)
[2017-02-09 08:11] VITALS: BP 133/73
[2017-02-09] MEDS ORDERED: Lisinopril 10mg tab ORAL SCH (09:00)
[2017-02-09] MEDS ORDERED: Atenolol 25mg tab ORAL SCH (09:00)
[2017-02-09 10:04] LABS: ANISOCYTOSIS 1+; BAND NEUTROPHILS % (MANUAL) 0 % (0-8); BASOPHILS % (MANUAL) 0 % (0-2); EOSINOPHILS % (MANUAL) 1 % (0-3); LYMPHOCYTES % (MANUAL) 29 % (20-45); NEUTROPHILS % (MANUAL) 59 % (45-75); PLATELET ESTIMATE DECREASED; PLATELET MORPHOLOGY NORMAL; TOTAL CELLS COUNTED 100
--- NOTE | 2017-02-09 10:28 | Pulmonology Progress Note ---
Assessment/Plan Assessment/Plan ASSESSMENT possible sepsis/SIRS fevers hyperglycemia DOOC acute hyponatremia abdominal pain diarrhea HTN hyperlipemia thrombocytopenia PLAN OF CARE IVF empiric abx ID consult, no obvious source of fever BS management with Levemir and SS of insulin , incerase dose today endo eval HgbA1c - 11.2 not at goal hyponatremia , on IVF with Na monitor lytes, K stable lipid panel with elevated TG, educated on low fat diet , TC and LDL WNL pain management DVT GI prophylaxis CT A/P negative still with abdominal pain and complained of diarrhea GI consult stool C dif abdominal US declined ETOH abuse BP management, , added low dose of ADRIANA DVT GI prophayxlis bowel regimen a/emetic prn pain management PLT trending down, will stop Heparin transfer to [facility] floor case discussed and evaluated by supervising physician Subjective Allergies: Coded Allergies: No Known Allergies (Verified Allergy, Mild, 10/16/07) Subjective still fever earlier this am c/o abdominal pain and diarrhea no blood ins tool; no vomiting PLT down to 80 Objective Last 24 Hour Vital Signs Date Time Temp Pulse Resp B/P Pulse Ox O2 Delivery O2 Flow Rate FiO2 02/09/17 08:11 97.5 80 18 133/73 97 Room Air 02/09/17 08:04 124/65 02/09/17 08:00 81 02/09/17 07:54 80 18 Room Air 02/09/17 04:00 98.1 69 18 124/65 Room Air 02/09/17 04:00 70 02/09/17 00:47 100.8 02/09/17 00:00 90 02/09/17 00:00 102.4 88 18 148/79 95 Room Air 02/08/17 20:00 100.4 86 18 139/80 95 Room Air 02/08/17 19:34 85 18 Room Air 02/08/17 16:00 79 02/08/17 16:00 100.6 81 18 143/73 96 Room Air 02/08/17 13:50 98.6 02/08/17 12:00 100.2 84 19 112/67 96 Room Air 02/08/17 12:00 81 Intake and Output 02/08/17 02/09/17 19:00 07:00 Intake Total 1367.416 ml 1177.416 ml Balance 1367.416 ml 1177.416 ml IV Total 1367.416 ml 1177.416 ml # Voids 5 # Bowel Movements 1 Objective General Appearance: WD/WN, no apparent distress, alert - A/A/O x 3 Lines, tubes and drains: peripheral HEENT: normocephalic, atraumatic, anicteric, PERRL Neck: non-tender, supple Respiratory/Chest: chest wall non-tender, lungs clear, no respiratory distress , no accessory muscle use Cardiovascular/Chest: regular rhythm, regularly irregular, no JVD Abdomen: normal bowel sounds, soft - mild tenderness in epigastric area 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, no motor/sensory deficits, alert, oriented x 3, responsive - [place] speaking , normal mood/affect Musculoskeletal: normal muscle bulk Microbiology Date/Time Source Procedure Growth Status 02/07/17 17:26 Blood Blood Culture - Preliminary NO GROWTH AFTER 24 HOURS Resulted 02/07/17 17:16 Blood Blood Culture - Preliminary NO GROWTH AFTER 24 HOURS Resulted Laboratory Tests 02/09/17 05:10: White Blood Count 3.8L, Red Blood Count 4.34L, Hemoglobin 13.4L, Hematocrit 38.8L, Mean Corpuscular Volume 89, Mean Corpuscular Hemoglobin 30.8, Mean Corpuscular Hemoglobin Concent 34.5, Red Cell Distribution Width 11.4L, Platelet Count 80L, Mean Platelet Volume 9.1, Neutrophils (%) (Auto) , Lymphocytes (%) (Auto) , Monocytes (%) (Auto) , Eosinophils (%) (Auto) , Basophils (%) (Auto) , Differential Total Cells Counted 100, Neutrophils % ( Manual) 59, Lymphocytes % (Manual) 29, Monocytes % (Manual) 11H, Eosinophils % ( Manual) 1, Basophils % (Manual) 0, Band Neutrophils 0, Platelet Estimate DecreasedL, Platelet Morphology Normal, Anisocytosis 1+, Sodium Level 130L, Potassium Level 3.9, Chloride Level 93L, Carbon Dioxide Level 24, Anion Gap 13, Blood Urea Nitrogen 10, Creatinine 0.9, Estimat Glomerular Filtration Rate > 60 , Glucose Level 268H, Calcium Level 7.7L Current Medications Medications (Trade) Dose Ordered Sig/Lm Route PRN Reason Start Time Stop Time Status Last Admin Dose Admin Acetaminophen (Tylenol) 650 mg Q4H PRN ORAL fever 02/07/17 19:30 03/09/17 19:29 02/08/17 12:51 Al Hydroxide/Mg Hydroxide (Mylanta II) 30 ml Q6H PRN ORAL dyspepsia 02/07/17 19:30 03/09/17 19:29 Albuterol/ Ipratropium (DuoNeb 0.5-3(2.5)mg/3ml) 3 ml Q4H PRN HHN Shortness of Breath 02/07/17 19:30 02/12/17 19:29 Ceftriaxone Sodium/Sodium Chloride (Rocephin/Sodium Chloride) 110 ml @ 220 mls/hr Q24H IV 02/07/17 21:00 02/14/17 20:59 02/08/17 21:56 Clonidine HCl 0.1 mg 0.1 mg Q4H PRN ORAL sbp more than 160 02/07/17 19:30 03/09/17 19:29 Dextrose (Dextrose 50%) STAT PRN IV Hypoglycemia 02/07/17 19:30 03/09/17 19:29 Heparin Sodium (Porcine) (Heparin 5000 units/ml) 5,000 units EVERY 12 HOURS SUBQ 02/07/17 21:00 03/09/17 20:59 Insulin Aspart (NovoLOG) BEFORE MEALS AND HS SUBQ 02/07/17 21:00 03/09/17 20:59 02/09/17 06:27 Insulin Detemir (Levemir) 15 units Q24H SUBQ 02/08/17 14:00 03/10/17 13:59 02/08/17 14:27 Ketorolac Tromethamine (Toradol 30mg) 30 mg Q6H PRN IV moderate pain 4-6 02/07/17 19:30 02/12/17 19:29 02/09/17 00:17 Lisinopril (Zestril) 10 mg DAILY ORAL 02/09/17 09:00 03/11/17 08:59 02/09/17 08:04 Morphine Sulfate (Morphine Sulfate) 2 mg Q4H PRN IVP severe pain 7-10 02/07/17 19:30 02/14/17 19:29 Nitroglycerin (Ntg) 0.4 mg Q5M X 3 DOSES PRN SL Prn Chest Pain 02/07/17 19:30 03/09/17 19:29 Ondansetron HCl (Zofran) 4 mg Q6H PRN IVP Nausea & Vomiting 02/07/17 19:30 03/09/17 19:29 02/09/17 00:08 Polyethylene Glycol (Miralax) 17 gm HSPRN PRN ORAL Constipation 02/07/17 19:30 03/09/17 19:29 02/08/17 22:29 Ranitidine HCl (Zantac) 150 mg TWICE A DAY ORAL 02/08/17 18:00 03/10/17 17:59 02/09/17 08:03 Sodium Chloride (Sodium Chloride 1000ml bag) 1,000 ml @ 100 mls/hr Q10H IVLG 02/07/17 19:30 03/09/17 19:29 02/08/17 14:31 Temazepam (Restoril) 15 mg HSPRN PRN ORAL Insomnia 02/07/17 19:30 02/14/17 19:29 Vancomycin HCl 1 ea 1 ea DAILY PRN MISC Per rx protocol 02/08/17 13:30 03/10/17 13:29 Vancomycin HCl/ Dextrose (Vancomycin/D5W) 275 ml @ 183.708 mls/hr Q12HR@0300,1500 IVPB 02/08/17 15:00 02/13/17 14:59 02/09/17 03:08 Colette Calero NP (Vanchtein) Feb 09, 2017 10:28
[2017-02-09 11:32] VITALS: BP 125/65
--- NOTE | 2017-02-09 12:11 | Infectious Diseases Prog Note ---
Assessment/Plan Assessment/Plan Id consult dictated # [id number] Subjective Allergies: Coded Allergies: No Known Allergies (Verified Allergy, Mild, 10/16/07) Objective Vital Signs Last 24 Hour Vital Signs Date Time Temp Pulse Resp B/P Pulse Ox O2 Delivery O2 Flow Rate FiO2 02/09/17 11:32 100.6 86 20 125/65 98 Room Air 02/09/17 08:11 97.5 80 18 133/73 97 Room Air 02/09/17 08:04 124/65 02/09/17 08:00 81 02/09/17 07:54 80 18 Room Air 02/09/17 04:00 98.1 69 18 124/65 Room Air 02/09/17 04:00 70 02/09/17 00:47 100.8 02/09/17 00:00 90 02/09/17 00:00 102.4 88 18 148/79 95 Room Air 02/08/17 20:00 100.4 86 18 139/80 95 Room Air 02/08/17 19:34 85 18 Room Air 02/08/17 16:00 79 02/08/17 16:00 100.6 81 18 143/73 96 Room Air 02/08/17 13:50 98.6 Height (Feet): 5 Height (Inches): 6.00 Weight (Pounds): 173 Microbiology Date/Time Source Procedure Growth Status 02/07/17 17:26 Blood Blood Culture - Preliminary NO GROWTH AFTER 24 HOURS Resulted 02/07/17 17:16 Blood Blood Culture - Preliminary NO GROWTH AFTER 24 HOURS Resulted Laboratory Tests Test 02/09/17 05:10 White Blood Count 3.8 K/UL (4.8-10.8) L Red Blood Count 4.34 M/UL (4.70-6.10) L Hemoglobin 13.4 G/DL (14.2-18.0) L Hematocrit 38.8 % (42.0-52.0) L Mean Corpuscular Volume 89 FL (80-99) Mean Corpuscular Hemoglobin 30.8 PG (27.0-31.0) Mean Corpuscular Hemoglobin Concent 34.5 G/DL (32.0-36.0) Red Cell Distribution Width 11.4 % (11.6-14.8) L Platelet Count 80 K/UL (150-450) L Mean Platelet Volume 9.1 FL (6.5-10.1) Neutrophils (%) (Auto) % (45.0-75.0) Lymphocytes (%) (Auto) % (20.0-45.0) Monocytes (%) (Auto) % (1.0-10.0) Eosinophils (%) (Auto) % (0.0-3.0) Basophils (%) (Auto) % (0.0-2.0) Differential Total Cells Counted 100 Neutrophils % (Manual) 59 % (45-75) Lymphocytes % (Manual) 29 % (20-45) Monocytes % (Manual) 11 % (1-10) H Eosinophils % (Manual) 1 % (0-3) Basophils % (Manual) 0 % (0-2) Band Neutrophils 0 % (0-8) Platelet Estimate Decreased L Platelet Morphology Normal Anisocytosis 1+ Sodium Level 130 mEQ/L (135-145) L Potassium Level 3.9 mEQ/L (3.4-4.9) Chloride Level 93 mEQ/L (98-107) L Carbon Dioxide Level 24 mEQ/L (20-30) Anion Gap 13 (5-15) Blood Urea Nitrogen 10 mg/dL (7-23) Creatinine 0.9 mg/dL (0.7-1.2) Estimat Glomerular Filtration Rate > 60 mL/min (>60) Glucose Level 268 mg/dL (74-106) H Calcium Level 7.7 mg/dL (8.6-10.2) L Current Medications Medications (Trade) Dose Ordered Sig/Lm Route PRN Reason Start Time Stop Time Status Last Admin Dose Admin Acetaminophen (Tylenol) 650 mg Q4H PRN ORAL fever 02/07/17 19:30 03/09/17 19:29 02/08/17 12:51 Al Hydroxide/Mg Hydroxide (Mylanta II) 30 ml Q6H PRN ORAL dyspepsia 02/07/17 19:30 03/09/17 19:29 Albuterol/ Ipratropium (DuoNeb 0.5-3(2.5)mg/3ml) 3 ml Q4H PRN HHN Shortness of Breath 02/07/17 19:30 02/12/17 19:29 Ceftriaxone Sodium/Sodium Chloride (Rocephin/Sodium Chloride) 110 ml @ 220 mls/hr Q24H IV 02/07/17 21:00 02/14/17 20:59 02/08/17 21:56 Clonidine HCl 0.1 mg 0.1 mg Q4H PRN ORAL sbp more than 160 02/07/17 19:30 03/09/17 19:29 Dextrose (Dextrose 50%) STAT PRN IV Hypoglycemia 02/07/17 19:30 03/09/17 19:29 Insulin Aspart (NovoLOG) BEFORE MEALS AND HS SUBQ 02/07/17 21:00 03/09/17 20:59 02/09/17 06:27 Insulin Detemir (Levemir) 20 units Q24H SUBQ 02/09/17 14:00 03/11/17 13:59 Ketorolac Tromethamine (Toradol 30mg) 30 mg Q6H PRN IV moderate pain 4-6 02/07/17 19:30 02/12/17 19:29 02/09/17 00:17 Lisinopril (Zestril) 10 mg DAILY ORAL 02/09/17 09:00 03/11/17 08:59 02/09/17 08:04 Morphine Sulfate (Morphine Sulfate) 2 mg Q4H PRN IVP severe pain 7-10 02/07/17 19:30 02/14/17 19:29 Nitroglycerin (Ntg) 0.4 mg Q5M X 3 DOSES PRN SL Prn Chest Pain 02/07/17 19:30 03/09/17 19:29 Ondansetron HCl (Zofran) 4 mg Q6H PRN IVP Nausea & Vomiting 02/07/17 19:30 03/09/17 19:29 02/09/17 00:08 Polyethylene Glycol (Miralax) 17 gm HSPRN PRN ORAL Constipation 02/07/17 19:30 03/09/17 19:29 02/08/17 22:29 Ranitidine HCl (Zantac) 150 mg TWICE A DAY ORAL 02/08/17 18:00 03/10/17 17:59 02/09/17 08:03 Sodium Chloride (Sodium Chloride 1000ml bag) 1,000 ml @ 75 mls/hr [id number] IVLG 02/09/17 11:00 03/11/17 10:59 02/09/17 11:00 Temazepam (Restoril) 15 mg HSPRN PRN ORAL Insomnia 02/07/17 19:30 02/14/17 19:29 Vancomycin HCl 1.25 gm/Dextrose 275 ml @ 183.708 mls/hr Q12HR@0300,1500 IVPB 02/08/17 15:00 02/13/17 14:59 02/09/17 03:08 Vancomycin HCl 1 ea 1 ea DAILY PRN MISC Per rx protocol 02/08/17 13:30 03/10/17 13:29 KELI BELLAMY Feb 09, 2017 12:11
[2017-02-09] MEDS ORDERED: Piperacillin/Tazobactam 3.375 GM in D5W 110 ML IVPB SCH (14:00)
[2017-02-09] MEDS ORDERED: Levemir Flexpen SUBQ SCH (14:00)
[2017-02-09] MEDS ORDERED: Nitroglycerin Subl 0.4mg tab (Bottle Of 25) SL PRN (14:45)
[2017-02-09] MEDS ORDERED: DuoNeb 0.5-3(2.5)mg/3ml neb HHN PRN (15:30)
[2017-02-09] MEDS ORDERED: Morphine Sulfate 2mg/ml Inj IVP PRN (15:30)
[2017-02-09 16:00] VITALS: BP 120/70
[2017-02-09 18:29] LABS: APPEARANCE,URINE CLEAR; KETONES,URINE NEGATIVE (NEGATIVE); LEUKOCYTE ESTERASE ,URINE 2+ (NEGATIVE); NITRITE,URINE NEGATIVE (NEGATIVE); PH,URINE 6 (4.5-8.0); PROTEIN,URINE 3+ (NEGATIVE); UROBILINOGEN,URINE NORMAL MG/DL (0.0-1.0)
[2017-02-09] MEDS: Vancomycin 1.25 GM in D5W 275 ML IVPB SCH (18:57)
[2017-02-09 19:01] LABS: BACTERIA,URINE FEW /HPF; SQUAMOUS EPITHELIAL CELL,UR OCCASIONAL /LPF (NONE/OCC)
[2017-02-09] MEDS ORDERED: Miralax 17gm pkt ORAL PRN (19:30)
[2017-02-09] MEDS ORDERED: Ketorolac 30mg Inj IV PRN (19:30)
[2017-02-09] MEDS ORDERED: Mylanta II UD 30ml ORAL PRN (19:30)
[2017-02-09 20:00] VITALS: BP 138/75
[2017-02-09] MEDS: Piperacillin/Tazobactam 3.375 GM in D5W 110 ML IVPB SCH (20:56)
--- NOTE | 2017-02-09 22:00 | Consultation ---
DATE OF CONSULTATION: 02/09/2017 GASTROENTEROLOGY CONSULTATION CHIEF COMPLAINT: I was asked to see this patient by Dr. Obey Arias for Dr. Perez for evaluation of abdominal pain and diarrhea. HISTORY OF PRESENT ILLNESS: The patient is a pleasant 51-year-old man, who came into the hospital with a two-day history of abdominal pain and high fevers to 102. In fact, he did have a fever of 102 as an inpatient last night. He had some nausea, vomiting, and he states he had some diarrhea. For the first two days, however, the patient had no bowel movements. The patient had a CT scan, which did not show any evidence of appendicitis or any acute intra-abdominal pathology. His white count was also unremarkable. However, he was admitted for high fever, on antibiotics. The patient's fever is slightly better today. He has not had any nausea or vomiting this morning and the fever is down. PAST MEDICAL HISTORY: Remarkable for a history of diabetes. The patient was apparently out of his medications for a week or so and his sugars are high. SOCIAL HISTORY: The patient is and Swazi speaking only. He does not smoke or drink. FAMILY HISTORY: Noncontributory. REVIEW OF SYSTEMS: Otherwise negative. PHYSICAL EXAMINATION: GENERAL: The patient is a pleasant white man, seen in his room. HEENT: Normocephalic and atraumatic. Sclerae anicteric. Oropharynx clear. NECK: Supple. CHEST: Clear to auscultation. CARDIOVASCULAR: Revealed a regular rate. ABDOMEN: Soft with some mild epigastric abdominal tenderness without guarding or rebound. EXTREMITIES: Revealed no edema. LABORATORY DATA: As noted. ASSESSMENT: This patient presents with epigastric abdominal pain, with fevers and diarrhea, suspect an infectious pathology causing fever of 102. There is a possibility of cholecystitis. I will order abdominal ultrasound to check his . CT scan was unremarkable with respect to gallbladder. Possibly infectious colitis and therefore, I will check the patient's stool for Clostridium difficile as well as cultures. Other pathologies explaining disorder. However, these can be evaluated further as well. An endoscopy can be considered should the patient's symptoms persist and no other pathology is identified. RECOMMENDATIONS: Per above discussion and per orders written in the chart. Thank you for asking me to participate in the care of this patient. Alona Morales M.D. DR: NOA JOB#: [id number] CC:
--- NOTE | 2017-02-09 22:45 | Consultation ---
DATE OF CONSULTATION: 02/09/2017 INFECTIOUS DISEASES CONSULTATION PRIMARY ATTENDING PHYSICIAN: Obey Arias M.D. REASON FOR CONSULTATION: Fever. HISTORY OF PRESENT ILLNESS: The patient is a 51-year-old male admitted on 02/07/2017 from home because of fever, chills, abdominal pain, nausea, and vomiting. He had a temperature of 102 degrees in the hospital. Since his admission, he has been febrile and his colon temperature is 100.6 degrees. PAST MEDICAL HISTORY: Significant for diabetes mellitus type 2. MEDICATIONS: He is getting Levemir insulin, sodium chloride, lisinopril, ranitidine, vancomycin, insulin, ceftriaxone, DuoNeb inhaler, Morphine, MiraLax, Zofran, and Clonidine. SOCIAL HISTORY: He lives at home. Denies alcohol, drug abuse, or smoking. REVIEW OF SYSTEMS: He has headache, fever, and epigastric pain. No coughing. No problem passing urine. PHYSICAL EXAMINATION: GENERAL APPEARANCE: He is in no acute distress. VITAL SIGNS: Temperature 100.6 degrees, pulse 86, and blood pressure 125/65. HEAD AND NECK: [place] conjunctiva. HEART: Regular. LUNGS: Clear. ABDOMEN: Soft. Mild tenderness in epigastric area. EXTREMITIES: He has no edema. LABORATORY DATA: WBC 3.8, hemoglobin 13.4, hematocrit 38.8, and platelets 80,000. Sodium 130, potassium 3.9, chloride 93, bicarbonate 24, BUN 10, creatinine 0.9, and glucose 268. Blood cultures x2 so far negative. UA showed WBC of 0 to 2. Chest x-ray was negative. Abdominal CT scan showed improvement of subcutaneous stranding of right flank. IMPRESSION: 1. Fever likely secondary to sepsis. The patient seemed to have abnormality in abdominal CT scan. 2. He has uncontrolled diabetes mellitus. 3. Hyponatremia. 4. Thrombocytopenia. 5. Leukopenia. RECOMMENDATIONS: 1. Change Rocephin to Zosyn. 2. Continue vancomycin. 3. Repeat cultures from urine. 4. Check for HIV test. At the end of my exam, I thank Dr. Arias for involving me in the care of this patient. Adam Rodriguez M.D. DR: Felisha JOB#: [id number] CC:
[2017-02-10 00:17] VITALS: BP 106/53
[2017-02-10] MEDS: Vancomycin 1.25 GM in D5W 275 ML IVPB SCH (01:59)
[2017-02-10 02:15] LABS: MEAN CORPUSCULAR HEMOGLOBIN 30.7 PG (27.0-31.0); MEAN CORPUSCULAR HGB CONC 35.5 G/DL (32.0-36.0); MEAN CORPUSCULAR VOLUME 86 FL (80-99); MEAN PLATELET VOLUME 7.3 FL (6.5-10.1); PLATELET COUNT 85 K/UL (150-450); RED BLOOD COUNT 4.72 M/UL (4.70-6.10); RED CELL DISTRIBUTION WIDTH 10.9 % (11.6-14.8); WHITE BLOOD COUNT 3.6 K/UL (4.8-10.8)
[2017-02-10 02:39] LABS: ALANINE AMINOTRANSFERASE 25 U/L (3-41); ANION GAP 14 (5-15); ASPARTATE AMINO TRANSFERASE 31 U/L (5-40); CALCIUM 8.1 mg/dL (8.6-10.2); CARBON DIOXIDE 25 mEQ/L (20-30); CHLORIDE 95 mEQ/L (98-107); CREATININE 0.8 mg/dL (0.7-1.2); GLOMERULAR FILTRATION RATE > 60 mL/min (>60); HEMOLYSIS 10; POTASSIUM 3.9 mEQ/L (3.4-4.9); SODIUM 134 mEQ/L (135-145); TOTAL PROTEIN 6.6 g/dL (6.6-8.7)
[2017-02-10 04:00] VITALS: BP 119/64
[2017-02-10] MEDS: Piperacillin/Tazobactam 3.375 GM in D5W 110 ML IVPB SCH ×3 (06:13→21:58)
[2017-02-10] MEDS: NovoLOG Insulin Flexpen SUBQ SCH ×4 (06:18→22:04)
[2017-02-10 08:00] VITALS: BP 110/69
[2017-02-10 08:21] LABS: BAND NEUTROPHILS % (MANUAL) 0 % (0-8); BASOPHILS % (MANUAL) 0 % (0-2); EOSINOPHILS % (MANUAL) 1 % (0-3); LYMPHOCYTES % (MANUAL) 28 % (20-45); NEUTROPHILS % (MANUAL) 61 % (45-75); PLATELET ESTIMATE DECREASED; PLATELET MORPHOLOGY NORMAL; TOTAL CELLS COUNTED 100
[2017-02-10] MEDS: Lisinopril 10mg tab ORAL SCH (08:24)
--- NOTE | 2017-02-10 10:29 | Infectious Diseases Prog Note ---
Assessment/Plan Assessment/Plan A: The patient is a 51-year-old Fever improving UA showed WBC of 0 to 2 Chest x-ray: N[facility]D Thrombocytopenia Leukopenia Chills , SP Abdominal pain, Diarrhea, nausea, and vomiting, SP HIV Neg DM2 P: cont Zosyn d# 2 / 5 and DC vancomycin d# 3 Monitor cultures ( Bl, Stool , Urine) Monitor CBC Monitor BMP Monitor CxRay Subjective Allergies: Coded Allergies: No Known Allergies (Verified Allergy, Mild, 10/16/07) Subjective no more diarrhea for N/V Objective Vital Signs Last 24 Hour Vital Signs Date Time Temp Pulse Resp B/P Pulse Ox O2 Delivery O2 Flow Rate FiO2 02/10/17 08:24 110/69 02/10/17 08:11 76 18 Room Air 21 02/10/17 08:00 98.2 73 20 110/69 96 Room Air 02/10/17 06:13 99.0 02/10/17 04:00 99.0 77 18 119/64 94 Room Air 02/10/17 00:17 99.1 79 19 106/53 99 Room Air 02/09/17 20:00 102.0 87 18 138/75 96 Room Air 02/09/17 19:30 84 20 Room Air 21 02/09/17 16:00 99.5 81 17 120/70 93 Room Air 02/09/17 13:23 100.9 02/09/17 11:32 100.6 86 20 125/65 98 Room Air Height (Feet): 5 Height (Inches): 6.00 Weight (Pounds): 173 HEENT: anicteric Respiratory/Chest: normal breath sounds Cardiovascular: regularly irregular Abdomen: no organomegaly Microbiology Date/Time Source Procedure Growth Status 02/07/17 17:26 Blood Blood Culture - Preliminary NO GROWTH AFTER 48 HOURS Resulted 02/07/17 17:16 Blood Blood Culture - Preliminary NO GROWTH AFTER 48 HOURS Resulted 02/09/17 18:10 Stool Clostridium difficile Toxin Assay - Final Complete 02/09/17 18:10 Stool Stool Culture - Preliminary Resulted Laboratory Tests Test 02/09/17 18:10 02/10/17 02:10 Urine Color Pale yellow Urine Appearance Clear Urine pH 6 (4.5-8.0) Urine Specific [place] 1.015 (1.005-1.035) Urine Protein 3+ (NEGATIVE) H Urine Glucose (UA) 3+ (NEGATIVE) H Urine Ketones Negative (NEGATIVE) Urine Occult Blood 1+ (NEGATIVE) H Urine Nitrite Negative (NEGATIVE) Urine Bilirubin Negative (NEGATIVE) Urine Urobilinogen Normal MG/DL (0.0-1.0) Urine Leukocyte Esterase 2+ (NEGATIVE) H Urine RBC 2-4 /HPF (0 - 0) H Urine WBC 5-10 /HPF (0 - 0) H Urine Squamous Epithelial Cells Occasional /LPF Urine Bacteria Few /HPF (NONE) Stool Occult Blood Negative (NEGATIVE) White Blood Count 3.6 K/UL (4.8-10.8) L Red Blood Count 4.72 M/UL (4.70-6.10) Hemoglobin 14.5 G/DL (14.2-18.0) Hematocrit 40.8 % (42.0-52.0) L Mean Corpuscular Volume 86 FL (80-99) Mean Corpuscular Hemoglobin 30.7 PG (27.0-31.0) Mean Corpuscular Hemoglobin Concent 35.5 G/DL (32.0-36.0) Red Cell Distribution Width 10.9 % (11.6-14.8) L Platelet Count 85 K/UL (150-450) L Mean Platelet Volume 7.3 FL (6.5-10.1) Neutrophils (%) (Auto) % (45.0-75.0) Lymphocytes (%) (Auto) % (20.0-45.0) Monocytes (%) (Auto) % (1.0-10.0) Eosinophils (%) (Auto) % (0.0-3.0) Basophils (%) (Auto) % (0.0-2.0) Differential Total Cells Counted 100 Neutrophils % (Manual) 61 % (45-75) Lymphocytes % (Manual) 28 % (20-45) Monocytes % (Manual) 10 % (1-10) Eosinophils % (Manual) 1 % (0-3) Basophils % (Manual) 0 % (0-2) Band Neutrophils 0 % (0-8) Platelet Estimate Decreased L Platelet Morphology Normal Red Blood Cell Morphology Normal Sodium Level 134 mEQ/L (135-145) L Potassium Level 3.9 mEQ/L (3.4-4.9) Chloride Level 95 mEQ/L (98-107) L Carbon Dioxide Level 25 mEQ/L (20-30) Anion Gap 14 (5-15) Blood Urea Nitrogen 9 mg/dL (7-23) Creatinine 0.8 mg/dL (0.7-1.2) Estimat Glomerular Filtration Rate > 60 mL/min (>60) Glucose Level 178 mg/dL (74-106) H Calcium Level 8.1 mg/dL (8.6-10.2) L Total Bilirubin 0.4 mg/dL (0.0-1.2) Aspartate Amino Transf (AST/SGOT) 31 U/L (5-40) Alanine Aminotransferase (ALT/SGPT) 25 U/L (3-41) Alkaline Phosphatase 90 U/L (40-129) Total Protein 6.6 g/dL (6.6-8.7) Albumin 3.4 g/dL (3.5-5.2) L Globulin 3.2 g/dL Albumin/Globulin Ratio 1.0 (1.0-2.7) Vancomycin Level Trough 10.7 ug/mL (5.0-12.0) HIV (1&2) Antibody Rapid Negative (NEGATIVE) Current Medications Medications (Trade) Dose Ordered Sig/Lm Route PRN Reason Start Time Stop Time Status Last Admin Dose Admin Acetaminophen (Tylenol) 650 mg Q4H PRN ORAL fever 02/09/17 15:30 03/11/17 15:29 02/10/17 04:05 Al Hydroxide/Mg Hydroxide (Mylanta II) 30 ml Q6H PRN ORAL dyspepsia 02/09/17 19:30 03/11/17 19:29 Albuterol/ Ipratropium (DuoNeb 0.5-3(2.5)mg/3ml) 3 ml Q4H PRN HHN Shortness of Breath 02/09/17 15:30 02/14/17 15:29 Clonidine HCl (Catapres) 0.1 mg Q4H PRN ORAL sbp more than 160 02/09/17 15:30 03/11/17 15:29 Dextrose (Dextrose 50%) STAT PRN IV Hypoglycemia 02/09/17 19:30 03/11/17 19:29 Insulin Aspart (NovoLOG) BEFORE MEALS AND HS SUBQ 02/09/17 16:30 03/11/17 16:29 02/10/17 06:18 Insulin Detemir (Levemir) 20 units Q24H SUBQ 02/10/17 11:30 03/12/17 11:29 Ketorolac Tromethamine (Toradol 30mg) 30 mg Q6H PRN IV moderate pain 4-6 02/09/17 19:30 02/14/17 19:29 Lisinopril (Zestril) 10 mg DAILY ORAL 02/10/17 09:00 03/12/17 08:59 Morphine Sulfate (Morphine Sulfate) 2 mg Q4H PRN IVP severe pain 7-10 02/09/17 15:30 02/16/17 15:29 Nitroglycerin (Ntg) 0.4 mg Q5M X 3 DOSES PRN SL Prn Chest Pain 02/09/17 14:45 03/11/17 14:44 Ondansetron HCl (Zofran) 4 mg Q6H PRN IVP Nausea & Vomiting 02/09/17 19:30 03/11/17 19:29 Piperacillin Sod/ Tazobactam Sod/ Dextrose (Zosyn/D5W) 110 ml @ 27.5 mls/hr EVERY 8 HOURS IVPB 02/09/17 22:00 02/14/17 21:59 02/10/17 06:13 Polyethylene Glycol (Miralax) 17 gm HSPRN PRN ORAL Constipation 02/09/17 19:30 03/11/17 19:29 Ranitidine HCl (Zantac) 150 mg TWICE A DAY ORAL 02/09/17 18:00 03/11/17 17:59 02/10/17 08:23 Sodium Chloride 1,000 ml @ 75 mls/hr [id number] IVLG 02/09/17 15:00 03/11/17 14:59 02/10/17 02:05 Temazepam (Restoril) 15 mg HSPRN PRN ORAL Insomnia 02/09/17 19:30 02/16/17 19:29 Vancomycin HCl 1 ea 1 ea DAILY PRN MISC Per rx protocol 02/10/17 09:00 03/12/17 08:59 Vancomycin HCl/ Dextrose (Vancomycin/D5W) 325 ml @ 162.5 mls/ hr Q12H IVPB 02/10/17 14:00 02/15/17 13:59 PAKO MORA M.D. Feb 10, 2017 10:29
[2017-02-10] MEDS: Levemir Flexpen SUBQ SCH (11:30)
[2017-02-10 12:00] VITALS: BP 122/63
--- NOTE | 2017-02-10 12:51 | GI Progress Note ---
Assessment/Plan Problems: (1) Leukopenia ICD Codes: D72.819 - Decreased white blood cell count, unspecified SNOMED: 78829165 (2) Abdominal pain ICD Codes: R10.9 - Unspecified abdominal pain SNOMED: 27402657 Status: stable Status Narrative Discussed with Dr. Perez. Assessment/Plan APCT reviewed >> unremarkable cdiff negative OB stool negative HIV negative abdominal U/S pending stool culture pending symptomatic tx at this time pain mgmt abx ppi fu labs consider EGD if pathologies negative, otherwise outpatient GI procedures Subjective Subjective abdominal pain resolved Objective Last 24 Hour Vital Signs Date Time Temp Pulse Resp B/P Pulse Ox O2 Delivery O2 Flow Rate FiO2 02/10/17 12:00 97.9 74 18 122/63 98 Room Air 02/10/17 08:24 110/69 02/10/17 08:11 76 18 Room Air 21 02/10/17 08:00 98.2 73 20 110/69 96 Room Air 02/10/17 06:13 99.0 02/10/17 04:00 99.0 77 18 119/64 94 Room Air 02/10/17 00:17 99.1 79 19 106/53 99 Room Air 02/09/17 20:00 102.0 87 18 138/75 96 Room Air 02/09/17 19:30 84 20 Room Air 21 02/09/17 16:00 99.5 81 17 120/70 93 Room Air 02/09/17 13:23 100.9 Intake and Output 02/09/17 02/10/17 19:00 07:00 Intake Total 810 ml 540 ml Balance 810 ml 540 ml Intake Oral 360 ml 240 ml IV Total 450 ml 300 ml # Voids 2 2 Laboratory Tests Test 02/09/17 18:10 02/10/17 02:10 Urine Color Pale yellow Urine Appearance Clear Urine pH 6 (4.5-8.0) Urine Specific [place] 1.015 (1.005-1.035) Urine Protein 3+ (NEGATIVE) H Urine Glucose (UA) 3+ (NEGATIVE) H Urine Ketones Negative (NEGATIVE) Urine Occult Blood 1+ (NEGATIVE) H Urine Nitrite Negative (NEGATIVE) Urine Bilirubin Negative (NEGATIVE) Urine Urobilinogen Normal MG/DL (0.0-1.0) Urine Leukocyte Esterase 2+ (NEGATIVE) H Urine RBC 2-4 /HPF (0 - 0) H Urine WBC 5-10 /HPF (0 - 0) H Urine Squamous Epithelial Cells Occasional /LPF Urine Bacteria Few /HPF (NONE) Stool Occult Blood Negative (NEGATIVE) White Blood Count 3.6 K/UL (4.8-10.8) L Red Blood Count 4.72 M/UL (4.70-6.10) Hemoglobin 14.5 G/DL (14.2-18.0) Hematocrit 40.8 % (42.0-52.0) L Mean Corpuscular Volume 86 FL (80-99) Mean Corpuscular Hemoglobin 30.7 PG (27.0-31.0) Mean Corpuscular Hemoglobin Concent 35.5 G/DL (32.0-36.0) Red Cell Distribution Width 10.9 % (11.6-14.8) L Platelet Count 85 K/UL (150-450) L Mean Platelet Volume 7.3 FL (6.5-10.1) Neutrophils (%) (Auto) % (45.0-75.0) Lymphocytes (%) (Auto) % (20.0-45.0) Monocytes (%) (Auto) % (1.0-10.0) Eosinophils (%) (Auto) % (0.0-3.0) Basophils (%) (Auto) % (0.0-2.0) Differential Total Cells Counted 100 Neutrophils % (Manual) 61 % (45-75) Lymphocytes % (Manual) 28 % (20-45) Monocytes % (Manual) 10 % (1-10) Eosinophils % (Manual) 1 % (0-3) Basophils % (Manual) 0 % (0-2) Band Neutrophils 0 % (0-8) Platelet Estimate Decreased L Platelet Morphology Normal Red Blood Cell Morphology Normal Sodium Level 134 mEQ/L (135-145) L Potassium Level 3.9 mEQ/L (3.4-4.9) Chloride Level 95 mEQ/L (98-107) L Carbon Dioxide Level 25 mEQ/L (20-30) Anion Gap 14 (5-15) Blood Urea Nitrogen 9 mg/dL (7-23) Creatinine 0.8 mg/dL (0.7-1.2) Estimat Glomerular Filtration Rate > 60 mL/min (>60) Glucose Level 178 mg/dL (74-106) H Calcium Level 8.1 mg/dL (8.6-10.2) L Total Bilirubin 0.4 mg/dL (0.0-1.2) Aspartate Amino Transf (AST/SGOT) 31 U/L (5-40) Alanine Aminotransferase (ALT/SGPT) 25 U/L (3-41) Alkaline Phosphatase 90 U/L (40-129) Total Protein 6.6 g/dL (6.6-8.7) Albumin 3.4 g/dL (3.5-5.2) L Globulin 3.2 g/dL Albumin/Globulin Ratio 1.0 (1.0-2.7) Vancomycin Level Trough 10.7 ug/mL (5.0-12.0) HIV (1&2) Antibody Rapid Negative (NEGATIVE) Microbiology Date/Time Source Procedure Growth Status 02/09/17 18:10 Stool Clostridium difficile Toxin Assay - Final Complete 02/09/17 18:10 Stool Stool Culture - Preliminary Resulted Height (Feet): 5 Height (Inches): 6.00 Weight (Pounds): 173 General Appearance: no apparent distress, alert Cardiovascular: normal rate Respiratory/Chest: normal breath sounds, no respiratory distress Abdominal Exam: normal bowel sounds, non tender, soft Extremities: normal range of motion Lexii Head N.P. Feb 10, 2017 12:51
[2017-02-10] MEDS ORDERED: Vancomycin 1.5 GM in D5W 325 ML IVPB SCH (14:00)
--- NOTE | 2017-02-10 14:49 | Diagnostic Imaging Report ---
Indications: Abdominal pain, fever Technique: Transabdominal real-time grayscale and duplex Doppler imaging of the upper abdomen and retroperitoneum was performed. Findings: Comparison: None. Liver normal size and surface contour, diffusely increased and coarsened parenchymal echogenicity. No focal lesions. Gallbladder unremarkable. No intraluminal stones or sludge. No mural thickening or adjacent fluid collections. Sonographic Schaffer sign negative.. Bile ducts normal caliber. Common bile duct 4 mm. Pancreas head and body suboptimally visualized without obvious abnormality; tail completely obscured. Spleen 13.3 cm, no focal abnormality. Right kidney unremarkable. Left kidney unremarkable. Abdominal aorta, intrahepatic portion of inferior vena cava patent, normal caliber. Duplex Doppler imaging demonstrates antegrade flow in splenic, portal, hepatic veins. No ascites. IMPRESSION: Hepatic steatosis Splenomegaly Pancreatic tail obscured Remainder of exam unremarkable.
[2017-02-10 16:00] VITALS: BP 132/66
--- NOTE | 2017-02-10 18:35 | Pulmonology Progress Note ---
Assessment/Plan Problems: (1) Sepsis (2) Hyperglycemia (3) Diabetes (4) Fever (5) Abdominal pain Assessment/Plan fever coming down' wbc lower no obvious source of sepsis sliding scale Subjective ROS Limited/Unobtainable: No Interval Events: no new complains, feeling better Allergies: Coded Allergies: No Known Allergies (Verified Allergy, Mild, 10/16/07) Objective Last 24 Hour Vital Signs Date Time Temp Pulse Resp B/P Pulse Ox O2 Delivery O2 Flow Rate FiO2 02/10/17 17:56 99.0 02/10/17 16:00 100.2 81 20 132/66 95 Room Air 02/10/17 12:00 97.9 74 18 122/63 98 Room Air 02/10/17 08:24 110/69 02/10/17 08:11 76 18 Room Air 21 02/10/17 08:00 98.2 73 20 110/69 96 Room Air 02/10/17 04:00 99.0 77 18 119/64 94 Room Air 02/10/17 00:17 99.1 79 19 106/53 99 Room Air 02/09/17 20:00 102.0 87 18 138/75 96 Room Air 02/09/17 19:30 84 20 Room Air 21 Intake and Output 02/09/17 02/10/17 19:00 07:00 Intake Total 810 ml 615 ml Balance 810 ml 615 ml Intake Oral 360 ml 240 ml IV Total 450 ml 375 ml # Voids 2 2 General Appearance: WD/WN HEENT: normocephalic, atraumatic Respiratory/Chest: chest wall non-tender, lungs clear Cardiovascular: normal peripheral pulses, normal rate Abdomen: normal bowel sounds, soft, non tender, no organomegaly Genitourinary: normal external genitalia Extremities: no cyanosis Skin: no rash Neurologic/Psychiatric: operations assistant II-XII grossly normal, no motor/sensory deficits Lymphatic: no neck adenopathy Musculoskeletal: normal muscle bulk Microbiology Date/Time Source Procedure Growth Status 02/09/17 18:10 Stool Clostridium difficile Toxin Assay - Final Complete 02/09/17 18:10 Stool Stool Culture - Preliminary Resulted Laboratory Tests 02/10/17 02:10: White Blood Count 3.6L, Red Blood Count 4.72, Hemoglobin 14.5, Hematocrit 40.8L , Mean Corpuscular Volume 86, Mean Corpuscular Hemoglobin 30.7, Mean Corpuscular Hemoglobin Concent 35.5, Red Cell Distribution Width 10.9L, Platelet Count 85L, Mean Platelet Volume 7.3, Neutrophils (%) (Auto) , Lymphocytes (%) (Auto) , Monocytes (%) (Auto) , Eosinophils (%) (Auto) , Basophils (%) (Auto) , Differential Total Cells Counted 100, Neutrophils % ( Manual) 61, Lymphocytes % (Manual) 28, Monocytes % (Manual) 10, Eosinophils % ( Manual) 1, Basophils % (Manual) 0, Band Neutrophils 0, Platelet Estimate DecreasedL, Platelet Morphology Normal, Red Blood Cell Morphology Normal, Sodium Level 134L, Potassium Level 3.9, Chloride Level 95L, Carbon Dioxide Level 25, Anion Gap 14, Blood Urea Nitrogen 9, Creatinine 0.8, Estimat Glomerular Filtration Rate > 60, Glucose Level 178H, Calcium Level 8.1L, Total Bilirubin 0.4, Aspartate Amino Transf (AST/SGOT) 31, Alanine Aminotransferase ( ALT/SGPT) 25, Alkaline Phosphatase 90, Total Protein 6.6, Albumin 3.4L, Globulin 3.2, Albumin/Globulin Ratio 1.0, Vancomycin Level Trough 10.7, HIV (1&2 ) Antibody Rapid Negative Current Medications Medications (Trade) Dose Ordered Sig/Lm Route PRN Reason Start Time Stop Time Status Last Admin Dose Admin Acetaminophen (Tylenol) 650 mg Q4H PRN ORAL fever 02/09/17 15:30 03/11/17 15:29 02/10/17 16:57 Al Hydroxide/Mg Hydroxide (Mylanta II) 30 ml Q6H PRN ORAL dyspepsia 02/09/17 19:30 03/11/17 19:29 Albuterol/ Ipratropium (DuoNeb 0.5-3(2.5)mg/3ml) 3 ml Q4H PRN HHN Shortness of Breath 02/09/17 15:30 02/14/17 15:29 Clonidine HCl (Catapres) 0.1 mg Q4H PRN ORAL sbp more than 160 02/09/17 15:30 03/11/17 15:29 Dextrose (Dextrose 50%) STAT PRN IV Hypoglycemia 02/09/17 19:30 03/11/17 19:29 Insulin Aspart (NovoLOG) BEFORE MEALS AND HS SUBQ 02/09/17 16:30 7/18/17 16:29 02/10/17 16:39 Insulin Detemir (Levemir) 20 units Q24H SUBQ 02/10/17 11:30 03/12/17 11:29 Ketorolac Tromethamine (Toradol 30mg) 30 mg Q6H PRN IV moderate pain 4-6 02/09/17 19:30 02/14/17 19:29 Lisinopril (Zestril) 10 mg DAILY ORAL 02/10/17 09:00 03/12/17 08:59 Morphine Sulfate (Morphine Sulfate) 2 mg Q4H PRN IVP severe pain 7-10 02/09/17 15:30 02/16/17 15:29 02/10/17 12:18 Nitroglycerin (Ntg) 0.4 mg Q5M X 3 DOSES PRN SL Prn Chest Pain 02/09/17 14:45 03/11/17 14:44 Ondansetron HCl (Zofran) 4 mg Q6H PRN IVP Nausea & Vomiting 02/09/17 19:30 03/11/17 19:29 Piperacillin Sod/ Tazobactam Sod/ Dextrose (Zosyn/D5W) 110 ml @ 27.5 mls/hr EVERY 8 HOURS IVPB 02/09/17 22:00 02/14/17 21:59 02/10/17 14:20 Polyethylene Glycol (Miralax) 17 gm HSPRN PRN ORAL Constipation 02/09/17 19:30 03/11/17 19:29 Ranitidine HCl (Zantac) 150 mg TWICE A DAY ORAL 02/09/17 18:00 03/11/17 17:59 02/10/17 18:27 Sodium Chloride 1,000 ml @ 75 mls/hr [id number] IVLG 02/09/17 15:00 03/11/17 14:59 02/10/17 16:59 Temazepam (Restoril) 15 mg HSPRN PRN ORAL Insomnia 02/09/17 19:30 02/16/17 19:29 HORACIO CORONADO Feb 10, 2017 18:35
[2017-02-10 20:00] VITALS: BP 125/69
[2017-02-11 04:00] VITALS: BP 128/57
[2017-02-11] MEDS: Piperacillin/Tazobactam 3.375 GM in D5W 110 ML IVPB SCH ×3 (05:43→21:10)
[2017-02-11] MEDS: NovoLOG Insulin Flexpen SUBQ SCH ×4 (05:52→21:09)
[2017-02-11 07:05] LABS: ANION GAP 16 (5-15); CALCIUM 7.7 mg/dL (8.6-10.2); CARBON DIOXIDE 23 mEQ/L (20-30); CHLORIDE 92 mEQ/L (98-107); CREATININE 0.8 mg/dL (0.7-1.2); GLOMERULAR FILTRATION RATE > 60 mL/min (>60); HEMOLYSIS 3; POTASSIUM 3.7 mEQ/L (3.4-4.9); SODIUM 131 mEQ/L (135-145)
[2017-02-11 07:08] LABS: MEAN CORPUSCULAR HEMOGLOBIN 30.4 PG (27.0-31.0); MEAN CORPUSCULAR HGB CONC 34.8 G/DL (32.0-36.0); MEAN CORPUSCULAR VOLUME 87 FL (80-99); MEAN PLATELET VOLUME 7.2 FL (6.5-10.1); PLATELET COUNT 74 K/UL (150-450); RED BLOOD COUNT 4.55 M/UL (4.70-6.10); RED CELL DISTRIBUTION WIDTH 11.1 % (11.6-14.8); WHITE BLOOD COUNT 3.5 K/UL (4.8-10.8)
[2017-02-11 08:31] VITALS: BP 125/64
[2017-02-11] MEDS: Lisinopril 10mg tab ORAL SCH (08:56)
[2017-02-11 09:39] LABS: ANISOCYTOSIS 1+; BAND NEUTROPHILS % (MANUAL) 1 % (0-8); BASOPHILS % (MANUAL) 0 % (0-2); EOSINOPHILS % (MANUAL) 0 % (0-3); LYMPHOCYTES % (MANUAL) 25 % (20-45); NEUTROPHILS % (MANUAL) 63 % (45-75); PLATELET ESTIMATE DECREASED; PLATELET MORPHOLOGY NORMAL; TOTAL CELLS COUNTED 100
[2017-02-11 11:51] VITALS: BP 97/60
[2017-02-11] MEDS: Levemir Flexpen SUBQ SCH (12:23)
--- NOTE | 2017-02-11 12:35 | Infectious Diseases Prog Note ---
Assessment/Plan Assessment/Plan A: The patient is a 51-year-old Fever improving UA showed WBC of 0 to 2 Chest x-ray: NAPD Thrombocytopenia Leukopenia Chills , SP Abdominal pain, nausea, and vomiting, SP Diarrhea : Stool cx :GNR Genit lesions ? HSV HIV Neg DM2 P: cont Zosyn d# 3 / 5 - 7 , add Valtrex d# 1 SP vancomycin d# 3 Monitor cultures ( Bl, Stool , Urine) Monitor CBC Monitor BMP Monitor Cx- Ray rec consult ( [facility] PCP ) Contact iso for now ( possible Salmonella vs Shigella ) Subjective Allergies: Coded Allergies: No Known Allergies (Verified Allergy, Mild, 10/16/07) Subjective has diarrhea and has penile lesions Objective Vital Signs Last 24 Hour Vital Signs Date Time Temp Pulse Resp B/P Pulse Ox O2 Delivery O2 Flow Rate FiO2 02/11/17 11:51 98.1 72 20 97/60 97 Room Air 02/11/17 08:56 125/64 02/11/17 08:31 97.1 78 20 125/64 98 Room Air 02/11/17 07:23 83 18 Room Air 21 02/11/17 07:05 99.9 02/11/17 06:00 101.8 02/11/17 04:00 100.0 83 20 128/57 95 Room Air 02/10/17 20:00 99.1 82 20 125/69 95 Room Air 02/10/17 19:16 99.0 02/10/17 19:00 71 16 Room Air 21 02/10/17 16:00 100.2 81 20 132/66 95 Room Air Height (Feet): 5 Height (Inches): 6.00 Weight (Pounds): 173 HEENT: anicteric Respiratory/Chest: normal breath sounds Cardiovascular: regularly irregular Abdomen: no organomegaly Genitourinary: other Microbiology Date/Time Source Procedure Growth Status 02/09/17 18:10 Stool Clostridium difficile Toxin Assay - Final Complete 02/09/17 18:10 Stool Stool Culture - Preliminary Gram Negative Bacillus 1 Resulted Laboratory Tests Test 02/11/17 06:20 White Blood Count 3.5 K/UL (4.8-10.8) L Red Blood Count 4.55 M/UL (4.70-6.10) L Hemoglobin 13.8 G/DL (14.2-18.0) L Hematocrit 39.7 % (42.0-52.0) L Mean Corpuscular Volume 87 FL (80-99) Mean Corpuscular Hemoglobin 30.4 PG (27.0-31.0) Mean Corpuscular Hemoglobin Concent 34.8 G/DL (32.0-36.0) Red Cell Distribution Width 11.1 % (11.6-14.8) L Platelet Count 74 K/UL (150-450) L Mean Platelet Volume 7.2 FL (6.5-10.1) Neutrophils (%) (Auto) % (45.0-75.0) Lymphocytes (%) (Auto) % (20.0-45.0) Monocytes (%) (Auto) % (1.0-10.0) Eosinophils (%) (Auto) % (0.0-3.0) Basophils (%) (Auto) % (0.0-2.0) Differential Total Cells Counted 100 Neutrophils % (Manual) 63 % (45-75) Lymphocytes % (Manual) 25 % (20-45) Monocytes % (Manual) 11 % (1-10) H Eosinophils % (Manual) 0 % (0-3) Basophils % (Manual) 0 % (0-2) Band Neutrophils 1 % (0-8) Platelet Estimate Decreased L Platelet Morphology Normal Anisocytosis 1+ Sodium Level 131 mEQ/L (135-145) L Potassium Level 3.7 mEQ/L (3.4-4.9) Chloride Level 92 mEQ/L (98-107) L Carbon Dioxide Level 23 mEQ/L (20-30) Anion Gap 16 (5-15) H Blood Urea Nitrogen 9 mg/dL (7-23) Creatinine 0.8 mg/dL (0.7-1.2) Estimat Glomerular Filtration Rate > 60 mL/min (>60) Glucose Level 188 mg/dL (74-106) H Calcium Level 7.7 mg/dL (8.6-10.2) L Current Medications Medications (Trade) Dose Ordered Sig/Lm Route PRN Reason Start Time Stop Time Status Last Admin Dose Admin Acetaminophen (Tylenol) 650 mg Q4H PRN ORAL fever 02/09/17 15:30 03/11/17 15:29 02/11/17 06:06 Al Hydroxide/Mg Hydroxide (Mylanta II) 30 ml Q6H PRN ORAL dyspepsia 02/09/17 19:30 03/11/17 19:29 Albuterol/ Ipratropium (DuoNeb 0.5-3(2.5)mg/3ml) 3 ml Q4H PRN HHN Shortness of Breath 02/09/17 15:30 02/14/17 15:29 Clonidine HCl (Catapres) 0.1 mg Q4H PRN ORAL sbp more than 160 02/09/17 15:30 03/11/17 15:29 Dextrose (Dextrose 50%) STAT PRN IV Hypoglycemia 02/09/17 19:30 03/11/17 19:29 Insulin Aspart (NovoLOG) BEFORE MEALS AND HS SUBQ 02/09/17 16:30 03/11/17 16:29 02/11/17 12:24 Insulin Detemir (Levemir) 20 units Q24H SUBQ 02/10/17 11:30 03/12/17 11:29 02/11/17 12:23 Ketorolac Tromethamine (Toradol 30mg) 30 mg Q6H PRN IV moderate pain 4-6 02/09/17 19:30 02/14/17 19:29 Lisinopril (Zestril) 10 mg DAILY ORAL 02/10/17 09:00 03/12/17 08:59 02/11/17 08:56 Morphine Sulfate (Morphine Sulfate) 2 mg Q4H PRN IVP severe pain 7-10 02/09/17 15:30 02/16/17 15:29 02/10/17 12:18 Nitroglycerin (Ntg) 0.4 mg Q5M X 3 DOSES PRN SL Prn Chest Pain 02/09/17 14:45 03/11/17 14:44 Ondansetron HCl (Zofran) 4 mg Q6H PRN IVP Nausea & Vomiting 02/09/17 19:30 03/11/17 19:29 Piperacillin Sod/ Tazobactam Sod/ Dextrose (Zosyn/D5W) 110 ml @ 27.5 mls/hr EVERY 8 HOURS IVPB 02/09/17 22:00 02/14/17 21:59 02/11/17 05:43 Polyethylene Glycol (Miralax) 17 gm HSPRN PRN ORAL Constipation 02/09/17 19:30 03/11/17 19:29 Ranitidine HCl (Zantac) 150 mg TWICE A DAY ORAL 02/09/17 18:00 03/11/17 17:59 02/11/17 08:56 Sodium Chloride 1,000 ml @ 75 mls/hr [id number] IVLG 02/09/17 15:00 03/11/17 14:59 02/11/17 05:44 Temazepam (Restoril) 15 mg HSPRN PRN ORAL Insomnia 02/09/17 19:30 02/16/17 19:29 PAKO MORA M.D. Feb 11, 2017 12:35
--- NOTE | 2017-02-11 14:35 | GI Progress Note ---
Assessment/Plan Problems: (1) Leukopenia ICD Codes: D72.819 - Decreased white blood cell count, unspecified SNOMED: 10092793 (2) Abdominal pain ICD Codes: R10.9 - Unspecified abdominal pain SNOMED: 67511198 Status: unchanged Status Narrative Discussed with Dr. Perez. Assessment/Plan APCT reviewed >> unremarkable cdiff negative OB stool negative HIV negative abdominal U/S >> fatty liver stool culture >> possible Salmonella vs Shigella, see ID note. symptomatic tx at this time adv diet ADA IV hydration + electrolyte replacement pain mgmt abx per ID ppi fu labs outpatient GI procedures Subjective Subjective abdominal pain resolved Objective Last 24 Hour Vital Signs Date Time Temp Pulse Resp B/P Pulse Ox O2 Delivery O2 Flow Rate FiO2 02/11/17 11:51 98.1 72 20 97/60 97 Room Air 02/11/17 08:56 125/64 02/11/17 08:31 97.1 78 20 125/64 98 Room Air 02/11/17 07:23 83 18 Room Air 21 02/11/17 07:05 99.9 02/11/17 06:00 101.8 02/11/17 04:00 100.0 83 20 128/57 95 Room Air 02/10/17 20:00 99.1 82 20 125/69 95 Room Air 02/10/17 19:16 99.0 02/10/17 19:00 71 16 Room Air 21 02/10/17 16:00 100.2 81 20 132/66 95 Room Air Intake and Output 02/10/17 02/11/17 19:00 07:00 Intake Total 747.5 ml 827.5 ml Balance 747.5 ml 827.5 ml Intake Oral 240 ml IV Total 747.5 ml 587.5 ml # Voids 3 1 # Bowel Movements 1 Laboratory Tests Test 02/11/17 06:20 White Blood Count 3.5 K/UL (4.8-10.8) L Red Blood Count 4.55 M/UL (4.70-6.10) L Hemoglobin 13.8 G/DL (14.2-18.0) L Hematocrit 39.7 % (42.0-52.0) L Mean Corpuscular Volume 87 FL (80-99) Mean Corpuscular Hemoglobin 30.4 PG (27.0-31.0) Mean Corpuscular Hemoglobin Concent 34.8 G/DL (32.0-36.0) Red Cell Distribution Width 11.1 % (11.6-14.8) L Platelet Count 74 K/UL (150-450) L Mean Platelet Volume 7.2 FL (6.5-10.1) Neutrophils (%) (Auto) % (45.0-75.0) Lymphocytes (%) (Auto) % (20.0-45.0) Monocytes (%) (Auto) % (1.0-10.0) Eosinophils (%) (Auto) % (0.0-3.0) Basophils (%) (Auto) % (0.0-2.0) Differential Total Cells Counted 100 Neutrophils % (Manual) 63 % (45-75) Lymphocytes % (Manual) 25 % (20-45) Monocytes % (Manual) 11 % (1-10) H Eosinophils % (Manual) 0 % (0-3) Basophils % (Manual) 0 % (0-2) Band Neutrophils 1 % (0-8) Platelet Estimate Decreased L Platelet Morphology Normal Anisocytosis 1+ Sodium Level 131 mEQ/L (135-145) L Potassium Level 3.7 mEQ/L (3.4-4.9) Chloride Level 92 mEQ/L (98-107) L Carbon Dioxide Level 23 mEQ/L (20-30) Anion Gap 16 (5-15) H Blood Urea Nitrogen 9 mg/dL (7-23) Creatinine 0.8 mg/dL (0.7-1.2) Estimat Glomerular Filtration Rate > 60 mL/min (>60) Glucose Level 188 mg/dL (74-106) H Calcium Level 7.7 mg/dL (8.6-10.2) L Height (Feet): 5 Height (Inches): 6.00 Weight (Pounds): 173 Lexii Head N.P. Feb 11, 2017 14:35
[2017-02-11 16:10] VITALS: BP 131/75
[2017-02-11 16:20] VITALS: BP 90/64
--- NOTE | 2017-02-11 19:04 | Pulmonology Progress Note ---
Assessment/Plan Problems: (1) Sepsis (2) Hyperglycemia (3) Diabetes (4) Fever (5) Abdominal pain Assessment/Plan fever coming down' wbc lower no obvious source of sepsis sliding scale stool showing Gran negative, sensitivity and ID pending urology evaluation for penile lesion Subjective ROS Limited/Unobtainable: No Interval Events: pt is upset about isolation Constitutional: Reports: no symptoms HEENT: Repors: no symptoms Allergies: Coded Allergies: No Known Allergies (Verified Allergy, Mild, 10/16/07) Objective Last 24 Hour Vital Signs Date Time Temp Pulse Resp B/P Pulse Ox O2 Delivery O2 Flow Rate FiO2 02/11/17 16:20 98.2 74 14 90/64 94 Room Air 02/11/17 16:10 97.9 74 20 131/75 93 Room Air 02/11/17 11:51 98.1 72 20 97/60 97 Room Air 02/11/17 08:56 125/64 02/11/17 08:31 97.1 78 20 125/64 98 Room Air 02/11/17 07:23 83 18 Room Air 21 02/11/17 07:05 99.9 02/11/17 06:00 101.8 02/11/17 04:00 100.0 83 20 128/57 95 Room Air 02/10/17 20:00 99.1 82 20 125/69 95 Room Air 02/10/17 19:16 99.0 02/10/17 19:00 71 16 Room Air 21 Intake and Output 02/10/17 02/11/17 19:00 07:00 Intake Total 747.5 ml 827.5 ml Balance 747.5 ml 827.5 ml Intake Oral 240 ml IV Total 747.5 ml 587.5 ml # Voids 3 1 # Bowel Movements 1 General Appearance: WD/WN HEENT: normocephalic, atraumatic Respiratory/Chest: chest wall non-tender, lungs clear Cardiovascular: normal peripheral pulses, normal rate Abdomen: normal bowel sounds, soft, non tender Genitourinary: normal external genitalia Extremities: no cyanosis Skin: no rash Microbiology Date/Time Source Procedure Growth Status 02/09/17 18:10 Stool Clostridium difficile Toxin Assay - Final Complete 02/09/17 18:10 Stool Stool Culture - Preliminary Gram Negative Bacillus 1 Resulted Laboratory Tests 02/11/17 06:20: White Blood Count 3.5L, Red Blood Count 4.55L, Hemoglobin 13.8L, Hematocrit 39.7L, Mean Corpuscular Volume 87, Mean Corpuscular Hemoglobin 30.4, Mean Corpuscular Hemoglobin Concent 34.8, Red Cell Distribution Width 11.1L, Platelet Count 74L, Mean Platelet Volume 7.2, Neutrophils (%) (Auto) , Lymphocytes (%) (Auto) , Monocytes (%) (Auto) , Eosinophils (%) (Auto) , Basophils (%) (Auto) , Differential Total Cells Counted 100, Neutrophils % ( Manual) 63, Lymphocytes % (Manual) 25, Monocytes % (Manual) 11H, Eosinophils % ( Manual) 0, Basophils % (Manual) 0, Band Neutrophils 1, Platelet Estimate DecreasedL, Platelet Morphology Normal, Anisocytosis 1+, Sodium Level 131L, Potassium Level 3.7, Chloride Level 92L, Carbon Dioxide Level 23, Anion Gap 16H , Blood Urea Nitrogen 9, Creatinine 0.8, Estimat Glomerular Filtration Rate > 60 , Glucose Level 188H, Calcium Level 7.7L Current Medications Medications (Trade) Dose Ordered Sig/Lm Route PRN Reason Start Time Stop Time Status Last Admin Dose Admin Acetaminophen (Tylenol) 650 mg Q4H PRN ORAL fever 02/09/17 15:30 03/11/17 15:29 02/11/17 06:06 Al Hydroxide/Mg Hydroxide (Mylanta II) 30 ml Q6H PRN ORAL dyspepsia 02/09/17 19:30 03/11/17 19:29 Albuterol/ Ipratropium (DuoNeb 0.5-3(2.5)mg/3ml) 3 ml Q4H PRN HHN Shortness of Breath 02/09/17 15:30 02/14/17 15:29 Clonidine HCl (Catapres) 0.1 mg Q4H PRN ORAL sbp more than 160 02/09/17 15:30 03/11/17 15:29 Dextrose (Dextrose 50%) STAT PRN IV Hypoglycemia 02/09/17 19:30 03/11/17 19:29 Insulin Aspart (NovoLOG) BEFORE MEALS AND HS SUBQ 02/09/17 16:30 03/11/17 16:29 02/11/17 17:19 Insulin Detemir (Levemir) 20 units Q24H SUBQ 02/10/17 11:30 03/12/17 11:29 02/11/17 12:23 Ketorolac Tromethamine (Toradol 30mg) 30 mg Q6H PRN IV moderate pain 4-6 02/09/17 19:30 02/14/17 19:29 Lisinopril (Zestril) 10 mg DAILY ORAL 02/10/17 09:00 03/12/17 08:59 02/11/17 08:56 Morphine Sulfate (Morphine Sulfate) 2 mg Q4H PRN IVP severe pain 7-10 02/09/17 15:30 02/16/17 15:29 02/10/17 12:18 Nitroglycerin (Ntg) 0.4 mg Q5M X 3 DOSES PRN SL Prn Chest Pain 02/09/17 14:45 03/11/17 14:44 Ondansetron HCl (Zofran) 4 mg Q6H PRN IVP Nausea & Vomiting 02/09/17 19:30 03/11/17 19:29 Piperacillin Sod/ Tazobactam Sod/ Dextrose (Zosyn/D5W) 110 ml @ 27.5 mls/hr EVERY 8 HOURS IVPB 02/09/17 22:00 02/14/17 21:59 02/11/17 14:08 Polyethylene Glycol (Miralax) 17 gm HSPRN PRN ORAL Constipation 02/09/17 19:30 03/11/17 19:29 Ranitidine HCl (Zantac) 150 mg TWICE A DAY ORAL 02/09/17 18:00 03/11/17 17:59 02/11/17 18:22 Sodium Chloride 1,000 ml @ 75 mls/hr [id number] IVLG 02/09/17 15:00 03/11/17 14:59 02/11/17 05:44 Temazepam (Restoril) 15 mg HSPRN PRN ORAL Insomnia 02/09/17 19:30 02/16/17 19:29 Valacyclovir HCl (Valtrex) 1,000 mg EVERY 12 HOURS ORAL 02/11/17 14:00 03/13/17 13:59 02/11/17 14:08 HORACIO CORONADO Feb 11, 2017 19:03
[2017-02-11 20:00] VITALS: BP 98/48
[2017-02-12] VITALS: BP 95/57
--- NOTE | 2017-02-12 00:30 | Consultation ---
DATE OF CONSULTATION: 02/11/2017 UROLOGY CONSULTATION ATTENDING/CONSULTING PHYSICIAN: Obey Arias M.D. CHIEF COMPLAINT/HISTORY OF PRESENT ILLNESS: I was asked by Dr. Arias to evaluate this 51-year-old diabetic male regarding history of phimosis. The patient presented to the hospital with a history of abdominal pain, fevers, chills, nausea, and vomiting. He apparently has been off of his insulin and metformin for a week because he ran out of his prescription. He was noted to have hyperglycemia with glucose over 1999 and was noted to be febrile with tachypnea and tachycardia here in the hospital. During evaluation, he was noted to have significant phimosis. As such, I was asked to evaluate the patient regarding the same. The patient reports a long-standing history of phimosis. He has discomfort with attempted retraction of his penile foreskin. This is nothing new to the patient. He denies any significant voiding symptoms otherwise. PAST MEDICAL HISTORY: 1. Diabetes. 2. Hypertension. 3. Hyperlipidemia. MEDICATIONS: Please see the chart for current medications and administration details. Briefly, the patient is receiving antibiotics here in the hospital. ALLERGIES: No known drug allergies. SOCIAL HISTORY: Unremarkable tobacco, alcohol, or drug use. FAMILY HISTORY: Noncontributory. REVIEW OF SYSTEMS: A 12-system review of systems was unremarkable outside of what is described above. PHYSICAL EXAMINATION: GENERAL: The patient is a middle-aged gentleman, awake, alert, and oriented x4, in mild distress. HEENT: NC/AT. EOMI. NECK: Supple. Full range of motion. Oropharynx is clear. CHEST: Within normal limits. ABDOMEN: Soft. Mildly diffusely tender. Nondistended. BACK: No CVA tenderness to percussion. GENITOURINARY: Reveals an uncircumcised male phallus with phimosis. There is no evidence of penile mass or other abnormality. There are bilateral descended testes and cord structures with no masses or tenderness to palpation. EXTREMITIES: Warm and well perfused. No cyanosis, clubbing, or edema. NEUROLOGIC: Nonfocal. LABORATORY DATA: White blood cell count 3.5, hematocrit 39.7, and platelets 74,000. Sodium 131, potassium 3.7, chloride 92, bicarbonate 23, BUN 9, creatinine 0.8, glucose 188, and calcium 7.7. LFTs within normal limits. Alkaline phosphatase 90. Urinalysis, specific gravity 1.015 and pH 6.0. Dip test notable for 3+ protein, 3+ glucose, and 1+ occult blood. Microanalysis with 2 to 4 red blood cells per high-power field, 5 to 10 white blood cells per high-power field, and few bacteria seen. Blood cultures negative after 72 hours. C. difficile negative. Stool culture for gram-negative bacillus. DIAGNOSTIC IMAGING: CT scan of the abdomen and pelvis reveals internal improvement with mild residual stranding involving the subcutaneous tissues in the right flank. There is a stable intraabdominal appearance. There is lung base atelectasis. There is a 4 mm likely cyst of the right renal cortex. There is bilateral cortical scarring of the kidneys. There is no hydronephrosis. There are no stones or masses noted in the kidneys. The bladder is grossly unremarkable. ASSESSMENT AND PLAN: In summary, the patient is a 51-year-old gentleman with a history of diabetes presenting with abdominal pain, fevers, and hyperglycemia out of control, off of his diabetic medications. He was noted to have phimosis, which is longstanding. Physical exam reveals the same. Laboratory data is notable for anemia. Laboratory data reveals hyperglycemia. Blood cultures are negative. Diagnostic imaging with CT scan does not reveal any significant abnormalities. In summary, the patient is a 51-year-old gentleman with history of phimosis, which is longstanding and severe. He presents to the hospital with febrile illness, abdominal pain, and hyperglycemia, off of his medications. Physical exam reveals phimosis. Laboratory data is essentially unremarkable from a standpoint. CT scan did not reveal any significant abnormalities. I agree with continuing this patient on antibiotics and supportive care as is being done. He does have phimosis, but this would not be the appropriate setting in which to address the same. Once the patient is treated, improved, and discharged home, he can follow up with a plan contact urologist for elective circumcision for management of the same. Thank you again for allowing me to participate in the care of this nice gentleman. Please do not hesitate to contact me any questions he may further have regarding his care. I will be happy to see him with you as needed. Juan Meléndez M.D. DR: Rachele JOB#: [id number] CC:
[2017-02-12 04:00] VITALS: BP 106/62
[2017-02-12] MEDS: Piperacillin/Tazobactam 3.375 GM in D5W 110 ML IVPB SCH (05:05)
[2017-02-12] MEDS: NovoLOG Insulin Flexpen SUBQ SCH ×4 (06:08→21:00)
[2017-02-12 07:06] LABS: BASOPHILS % (AUTO) 0.5 % (0.0-2.0); EOSINOPHILS % (AUTO) 1.9 % (0.0-3.0); LYMPHOCYTES % (AUTO) 36.2 % (20.0-45.0); MEAN CORPUSCULAR HEMOGLOBIN 31.7 PG (27.0-31.0); MEAN CORPUSCULAR HGB CONC 36.5 G/DL (32.0-36.0); MEAN CORPUSCULAR VOLUME 87 FL (80-99); MEAN PLATELET VOLUME 7.5 FL (6.5-10.1); MONOCYTES % (AUTO) 10.2 % (1.0-10.0); NEUTROPHILS % (AUTO) 51.3 % (45.0-75.0); PLATELET COUNT 101 K/UL (150-450); RED BLOOD COUNT 4.78 M/UL (4.70-6.10); RED CELL DISTRIBUTION WIDTH 11.2 % (11.6-14.8); WHITE BLOOD COUNT 3.9 K/UL (4.8-10.8)
[2017-02-12 07:15] LABS: ANION GAP 14 (5-15); CALCIUM 8.2 mg/dL (8.6-10.2); CARBON DIOXIDE 23 mEQ/L (20-30); CHLORIDE 97 mEQ/L (98-107); CREATININE 1.1 mg/dL (0.7-1.2); GLOMERULAR FILTRATION RATE > 60 mL/min (>60); HEMOLYSIS 8; POTASSIUM 4.6 mEQ/L (3.4-4.9); SODIUM 134 mEQ/L (135-145)
[2017-02-12 08:00] VITALS: BP 108/67
[2017-02-12] MEDS: Lisinopril 10mg tab ORAL SCH (08:53)
--- NOTE | 2017-02-12 10:32 | GI Progress Note ---
Assessment/Plan Problems: (1) Leukopenia ICD Codes: D72.819 - Decreased white blood cell count, unspecified SNOMED: 44461671 (2) Abdominal pain ICD Codes: R10.9 - Unspecified abdominal pain SNOMED: 80410374 (3) Diarrhea ICD Codes: R19.7 - Diarrhea, unspecified SNOMED: 05779606 (4) Sepsis ICD Codes: A41.9 - Sepsis, unspecified organism SNOMED: 10224132 Status: unchanged Assessment/Plan APCT reviewed >> unremarkable cdiff negative OB stool negative HIV negative abdominal U/S >> fatty liver stool culture >> GRAM NEGATIVE BACILLUS 1 contact precautions >> possible Salmonella vs Shigella, see ID note. symptomatic tx at this time adv diet ADA IV hydration + electrolyte replacement pain mgmt abx per ID ppi fu labs outpatient GI procedures Subjective Subjective abdominal pain diarrhea Objective Last 24 Hour Vital Signs Date Time Temp Pulse Resp B/P Pulse Ox O2 Delivery O2 Flow Rate FiO2 02/12/17 08:53 108/67 02/12/17 08:00 97.0 71 20 108/67 97 Room Air 02/12/17 07:46 69 18 Room Air 21 02/12/17 04:00 98.1 69 18 106/62 Room Air 02/12/17 00:00 98.6 74 20 95/57 97 Room Air 02/11/17 21:52 101.8 02/11/17 20:00 102.2 72 16 98/48 96 Room Air 02/11/17 19:30 82 18 Room Air 21 02/11/17 16:20 98.2 74 14 90/64 94 Room Air 02/11/17 16:10 97.9 74 20 131/75 93 Room Air 02/11/17 11:51 98.1 72 20 97/60 97 Room Air Intake and Output 02/11/17 02/12/17 19:00 07:00 Intake Total 1500.5 ml 1127.5 ml Balance 1500.5 ml 1127.5 ml Intake Oral 1000 ml 240 ml IV Total 500.5 ml 887.5 ml # Voids 2 2 # Bowel Movements 1 Laboratory Tests Test 02/12/17 05:10 White Blood Count 3.9 K/UL (4.8-10.8) L Red Blood Count 4.78 M/UL (4.70-6.10) Hemoglobin 15.2 G/DL (14.2-18.0) Hematocrit 41.6 % (42.0-52.0) L Mean Corpuscular Volume 87 FL (80-99) Mean Corpuscular Hemoglobin 31.7 PG (27.0-31.0) H Mean Corpuscular Hemoglobin Concent 36.5 G/DL (32.0-36.0) H Red Cell Distribution Width 11.2 % (11.6-14.8) L Platelet Count 101 K/UL (150-450) L Mean Platelet Volume 7.5 FL (6.5-10.1) Neutrophils (%) (Auto) 51.3 % (45.0-75.0) Lymphocytes (%) (Auto) 36.2 % (20.0-45.0) Monocytes (%) (Auto) 10.2 % (1.0-10.0) H Eosinophils (%) (Auto) 1.9 % (0.0-3.0) Basophils (%) (Auto) 0.5 % (0.0-2.0) Sodium Level 134 mEQ/L (135-145) L Potassium Level 4.6 mEQ/L (3.4-4.9) Chloride Level 97 mEQ/L (98-107) L Carbon Dioxide Level 23 mEQ/L (20-30) Anion Gap 14 (5-15) Blood Urea Nitrogen 12 mg/dL (7-23) Creatinine 1.1 mg/dL (0.7-1.2) Estimat Glomerular Filtration Rate > 60 mL/min (>60) Glucose Level 291 mg/dL (74-106) #H Calcium Level 8.2 mg/dL (8.6-10.2) L Height (Feet): 5 Height (Inches): 6.00 Weight (Pounds): 173 General Appearance: no apparent distress, alert Cardiovascular: normal rate Respiratory/Chest: normal breath sounds, no respiratory distress Abdominal Exam: normal bowel sounds, non tender, soft Extremities: normal range of motion Lexii Head N.P. Feb 12, 2017 10:32
[2017-02-12] MEDS: Levemir Flexpen SUBQ SCH (11:44)
--- NOTE | 2017-02-12 11:45 | Infectious Diseases Prog Note ---
Assessment/Plan Assessment/Plan A: The patient is a 51-year-old Fever ? soruce UA showed WBC of 0 to 2 Chest x-ray: NAPD Thrombocytopenia Leukopenia Chills , SP Abdominal pain, nausea, and vomiting, SP Diarrhea : Stool cx ( PSA no clinical significance ) , no evidence of Salmonella vs Shigella Genit lesions ? HSV HIV Neg Phimosis DM2 P: change Zosyn d# 4 to merrem and Vanco d# 1 Cont Valtrex d# 2 SP vancomycin d# 3 Monitor cultures ( Bl , Ur ) Monitor CBC Monitor BMP Monitor Cx- Ray following DC Contact iso 2D Echo repeat CT C/A/ P ESR and CRP Subjective Allergies: Coded Allergies: No Known Allergies (Verified Allergy, Mild, 10/16/07) Subjective fever Objective Vital Signs Last 24 Hour Vital Signs Date Time Temp Pulse Resp B/P Pulse Ox O2 Delivery O2 Flow Rate FiO2 02/12/17 08:53 108/67 02/12/17 08:00 97.0 71 20 108/67 97 Room Air 02/12/17 07:46 69 18 Room Air 21 02/12/17 04:00 98.1 69 18 106/62 Room Air 02/12/17 00:00 98.6 74 20 95/57 97 Room Air 02/11/17 21:52 101.8 02/11/17 20:00 102.2 72 16 98/48 96 Room Air 02/11/17 19:30 82 18 Room Air 21 02/11/17 16:20 98.2 74 14 90/64 94 Room Air 02/11/17 16:10 97.9 74 20 131/75 93 Room Air 02/11/17 11:51 98.1 72 20 97/60 97 Room Air Height (Feet): 5 Height (Inches): 6.00 Weight (Pounds): 173 HEENT: atraumatic Respiratory/Chest: normal breath sounds Cardiovascular: no gallop/murmur Abdomen: no organomegaly Microbiology Date/Time Source Procedure Growth Status 02/09/17 18:10 Stool Clostridium difficile Toxin Assay - Final Complete 02/09/17 18:10 Stool Stool Culture - Preliminary Pseudomonas Aeruginosa Resulted Laboratory Tests Test 02/12/17 05:10 White Blood Count 3.9 K/UL (4.8-10.8) L Red Blood Count 4.78 M/UL (4.70-6.10) Hemoglobin 15.2 G/DL (14.2-18.0) Hematocrit 41.6 % (42.0-52.0) L Mean Corpuscular Volume 87 FL (80-99) Mean Corpuscular Hemoglobin 31.7 PG (27.0-31.0) H Mean Corpuscular Hemoglobin Concent 36.5 G/DL (32.0-36.0) H Red Cell Distribution Width 11.2 % (11.6-14.8) L Platelet Count 101 K/UL (150-450) L Mean Platelet Volume 7.5 FL (6.5-10.1) Neutrophils (%) (Auto) 51.3 % (45.0-75.0) Lymphocytes (%) (Auto) 36.2 % (20.0-45.0) Monocytes (%) (Auto) 10.2 % (1.0-10.0) H Eosinophils (%) (Auto) 1.9 % (0.0-3.0) Basophils (%) (Auto) 0.5 % (0.0-2.0) Sodium Level 134 mEQ/L (135-145) L Potassium Level 4.6 mEQ/L (3.4-4.9) Chloride Level 97 mEQ/L (98-107) L Carbon Dioxide Level 23 mEQ/L (20-30) Anion Gap 14 (5-15) Blood Urea Nitrogen 12 mg/dL (7-23) Creatinine 1.1 mg/dL (0.7-1.2) Estimat Glomerular Filtration Rate > 60 mL/min (>60) Glucose Level 291 mg/dL (74-106) #H Calcium Level 8.2 mg/dL (8.6-10.2) L Current Medications Medications (Trade) Dose Ordered Sig/Lm Route PRN Reason Start Time Stop Time Status Last Admin Dose Admin Acetaminophen (Tylenol) 650 mg Q4H PRN ORAL fever 02/09/17 15:30 03/11/17 15:29 02/11/17 20:53 Al Hydroxide/Mg Hydroxide (Mylanta II) 30 ml Q6H PRN ORAL dyspepsia 02/09/17 19:30 03/11/17 19:29 Albuterol/ Ipratropium (DuoNeb 0.5-3(2.5)mg/3ml) 3 ml Q4H PRN HHN Shortness of Breath 02/09/17 15:30 02/14/17 15:29 Clonidine HCl (Catapres) 0.1 mg Q4H PRN ORAL sbp more than 160 02/09/17 15:30 03/11/17 15:29 Dextrose (Dextrose 50%) STAT PRN IV Hypoglycemia 02/09/17 19:30 03/11/17 19:29 Insulin Aspart (NovoLOG) BEFORE MEALS AND HS SUBQ 02/09/17 16:30 03/11/17 16:29 02/12/17 06:08 Insulin Detemir (Levemir) 20 units Q24H SUBQ 02/10/17 11:30 03/12/17 11:29 02/11/17 12:23 Ketorolac Tromethamine (Toradol 30mg) 30 mg Q6H PRN IV moderate pain 4-6 02/09/17 19:30 02/14/17 19:29 Lisinopril (Zestril) 10 mg DAILY ORAL 02/10/17 09:00 03/12/17 08:59 02/11/17 08:56 Morphine Sulfate (Morphine Sulfate) 2 mg Q4H PRN IVP severe pain 7-10 02/09/17 15:30 02/16/17 15:29 02/10/17 12:18 Nitroglycerin (Ntg) 0.4 mg Q5M X 3 DOSES PRN SL Prn Chest Pain 02/09/17 14:45 03/11/17 14:44 Ondansetron HCl (Zofran) 4 mg Q6H PRN IVP Nausea & Vomiting 02/09/17 19:30 03/11/17 19:29 Piperacillin Sod/ Tazobactam Sod/ Dextrose (Zosyn/D5W) 110 ml @ 27.5 mls/hr EVERY 8 HOURS IVPB 02/09/17 22:00 02/14/17 21:59 02/12/17 05:05 Polyethylene Glycol (Miralax) 17 gm HSPRN PRN ORAL Constipation 02/09/17 19:30 03/11/17 19:29 Ranitidine HCl (Zantac) 150 mg TWICE A DAY ORAL 02/09/17 18:00 03/11/17 17:59 02/12/17 08:58 Sodium Chloride 1,000 ml @ 75 mls/hr [id number] IVLG 02/09/17 15:00 03/11/17 14:59 02/12/17 08:58 Temazepam (Restoril) 15 mg HSPRN PRN ORAL Insomnia 02/09/17 19:30 02/16/17 19:29 Valacyclovir HCl (Valtrex) 1,000 mg EVERY 12 HOURS ORAL 02/11/17 14:00 03/13/17 13:59 02/12/17 08:58 PAKO MORA M.D. Feb 12, 2017 11:45
[2017-02-12 12:00] VITALS: BP 100/57
[2017-02-12] MEDS: Meropenem 1 GM in NS 110 ML IVPB SCH ×2 (15:13→22:00)
--- NOTE | 2017-02-12 15:25 | Cardiology Report ---
APPROVED REPORT EXAM: Two-dimensional and M-mode echocardiogram with Doppler and color Doppler. INDICATION Angina Pectoris M-Mode DIMENSIONS IVSd1.2 (0.7-1.1cm)Left Atrium (MM)3.1 (1.6-4.0cm) LVDd4.0 (3.5-5.6cm)Aortic Root2.9 (2.0-3.7cm) PWd1.4 (0.7-1.1cm)Aortic Cusp Exc.1.5 (1.5-2.0cm) LVDs2.5 (2.5-4.0cm) PWs1.7 cm Normal left ventricular chamber size, systolic function and wall motion. Left ventricular ejection fraction estimated to be 60-65 %. No evidence of left ventricular hypertrophy. No evidence of pericardial effusion. All other cardiac chamber sizes are within normal limits. Mild focal aortic valve sclerosis with adequate cusp excursion. Mildly thickened mitral valve leaflets with normal excursion. Mitral annulus and aortic root calcification. Normal pulmonic valve structure. Normal tricuspid valve structure. IVC at normal size with physiologic collapse. A color flow and spectral Doppler study was performed and revealed: Trace mitral regurgitation. Mitral diastolic velocities suggest reduced left ventricular relaxation c/w mild LV diastolic dysfunction (Grade I). Trace tricuspid regurgitation. Tricuspid systolic velocities suggests peak right ventricular systolic pressure of 18 mmHg.
[2017-02-12 16:00] VITALS: BP 106/60
[2017-02-12] MEDS: Vancomycin 1250mg/D5W 275ml IVPB SCH ×2 (16:09)
--- NOTE | 2017-02-12 16:19 | Cardiology Report ---
APPROVED REPORT EKG Measurement Heart [id number] 140P-4 [id number] Normal sinus rhythm Normal ECG
--- NOTE | 2017-02-12 17:10 | Pulmonology Progress Note ---
Assessment/Plan Problems: (1) Sepsis (2) Hyperglycemia (3) Diabetes (4) Fever (5) Abdominal pain Assessment/Plan fever coming down' wbc lower no obvious source of sepsis sliding scale stool showing Gran negative, sensitivity and ID pending urology evaluation for penile lesion Subjective ROS Limited/Unobtainable: No Allergies: Coded Allergies: No Known Allergies (Verified Allergy, Mild, 10/16/07) Objective Last 24 Hour Vital Signs Date Time Temp Pulse Resp B/P Pulse Ox O2 Delivery O2 Flow Rate FiO2 02/12/17 16:00 98.2 67 20 106/60 98 Room Air 02/12/17 12:00 98.2 64 20 100/57 99 Room Air 02/12/17 08:53 108/67 02/12/17 08:00 97.0 71 20 108/67 97 Room Air 02/12/17 07:46 69 18 Room Air 21 02/12/17 04:00 98.1 69 18 106/62 Room Air 02/12/17 00:00 98.6 74 20 95/57 97 Room Air 02/11/17 21:52 101.8 02/11/17 20:00 102.2 72 16 98/48 96 Room Air 02/11/17 19:30 82 18 Room Air 21 Intake and Output 02/11/17 02/12/17 19:00 07:00 Intake Total 1500.5 ml 1127.5 ml Balance 1500.5 ml 1127.5 ml Intake Oral 1000 ml 240 ml IV Total 500.5 ml 887.5 ml # Voids 2 2 # Bowel Movements 1 Objective General Appearance: WD/WN HEENT: normocephalic, atraumatic Respiratory/Chest: chest wall non-tender, lungs clear Cardiovascular: normal peripheral pulses, normal rate Abdomen: normal bowel sounds, soft, non tender Genitourinary: normal external genitalia Extremities: no cyanosis Skin: no rash Neurologic/Psychiatric: trawl net maker II-XII grossly normal Lymphatic: no neck adenopathy, no groin adenopathy Microbiology Date/Time Source Procedure Growth Status 02/09/17 18:10 Stool Clostridium difficile Toxin Assay - Final Complete 02/09/17 18:10 Stool Stool Culture - Preliminary Pseudomonas Aeruginosa Resulted Laboratory Tests 02/12/17 05:10: White Blood Count 3.9L, Red Blood Count 4.78, Hemoglobin 15.2, Hematocrit 41.6L , Mean Corpuscular Volume 87, Mean Corpuscular Hemoglobin 31.7H, Mean Corpuscular Hemoglobin Concent 36.5H, Red Cell Distribution Width 11.2L, Platelet Count 101L, Mean Platelet Volume 7.5, Neutrophils (%) (Auto) 51.3, Lymphocytes (%) (Auto) 36.2, Monocytes (%) (Auto) 10.2H, Eosinophils (%) (Auto) 1.9, Basophils (%) (Auto) 0.5, Sodium Level 134L, Potassium Level 4.6, Chloride Level 97L, Carbon Dioxide Level 23, Anion Gap 14, Blood Urea Nitrogen 12, Creatinine 1.1, Estimat Glomerular Filtration Rate > 60, Glucose Level 291#H, Calcium Level 8.2L, C-Reactive Protein, Quantitative 0.8H Current Medications Medications (Trade) Dose Ordered Sig/Lm Route PRN Reason Start Time Stop Time Status Last Admin Dose Admin Acetaminophen (Tylenol) 650 mg Q4H PRN ORAL fever 02/09/17 15:30 03/11/17 15:29 02/11/17 20:53 Al Hydroxide/Mg Hydroxide (Mylanta II) 30 ml Q6H PRN ORAL dyspepsia 02/09/17 19:30 03/11/17 19:29 Albuterol/ Ipratropium (DuoNeb 0.5-3(2.5)mg/3ml) 3 ml Q4H PRN HHN Shortness of Breath 02/09/17 15:30 02/14/17 15:29 Clonidine HCl (Catapres) 0.1 mg Q4H PRN ORAL sbp more than 160 02/09/17 15:30 03/11/17 15:29 Dextrose (Dextrose 50%) STAT PRN IV Hypoglycemia 02/09/17 19:30 03/11/17 19:29 Insulin Aspart (NovoLOG) BEFORE MEALS AND HS SUBQ 02/09/17 16:30 03/11/17 16:29 02/12/17 11:45 Insulin Detemir (Levemir) 20 units Q24H SUBQ 02/10/17 11:30 03/12/17 11:29 02/12/17 11:44 Ketorolac Tromethamine (Toradol 30mg) 30 mg Q6H PRN IV moderate pain 4-6 02/09/17 19:30 02/14/17 19:29 Lisinopril (Zestril) 10 mg DAILY ORAL 02/10/17 09:00 03/12/17 08:59 02/11/17 08:56 Meropenem/Sodium Chloride (Merrem/Sodium Chloride) 110 ml @ 220 mls/hr Q8HR IVPB 02/12/17 14:00 02/17/17 13:59 02/12/17 15:13 Morphine Sulfate (Morphine Sulfate) 2 mg Q4H PRN IVP severe pain 7-10 02/09/17 15:30 02/16/17 15:29 02/10/17 12:18 Nitroglycerin (Ntg) 0.4 mg Q5M X 3 DOSES PRN SL Prn Chest Pain 02/09/17 14:45 03/11/17 14:44 Ondansetron HCl (Zofran) 4 mg Q6H PRN IVP Nausea & Vomiting 02/09/17 19:30 03/11/17 19:29 Polyethylene Glycol (Miralax) 17 gm HSPRN PRN ORAL Constipation 02/09/17 19:30 03/11/17 19:29 Ranitidine HCl (Zantac) 150 mg TWICE A DAY ORAL 02/09/17 18:00 03/11/17 17:59 02/12/17 08:58 Sodium Chloride (Sodium Chloride 1000ml bag) 1,000 ml @ 75 mls/hr [id number] IVLG 02/09/17 15:00 03/11/17 14:59 02/12/17 08:58 Temazepam (Restoril) 15 mg HSPRN PRN ORAL Insomnia 02/09/17 19:30 02/16/17 19:29 Valacyclovir HCl 1000 mg 1,000 mg EVERY 12 HOURS ORAL 02/11/17 14:00 03/13/17 13:59 02/12/17 08:58 Vancomycin HCl 1 ea 1 ea DAILY PRN MISC Per rx protocol 02/12/17 11:45 03/14/17 11:44 Vancomycin HCl/ Dextrose (Vancomycin/D5W) 275 ml @ 183.333 mls/hr Q12HR@0300,1500 IVPB 02/12/17 15:00 02/17/17 14:59 02/12/17 16:09 HORACIO CORONADO Feb 12, 2017 17:10
[2017-02-12 20:00] VITALS: BP 118/51
[2017-02-13] VITALS: BP 122/70
[2017-02-13] MEDS: Vancomycin 1250mg/D5W 275ml IVPB SCH ×4 (03:41→15:37)
[2017-02-13 04:00] VITALS: BP 129/79
[2017-02-13] MEDS: Meropenem 1 GM in NS 110 ML IVPB SCH ×2 (06:37→14:21)
[2017-02-13] MEDS: NovoLOG Insulin Flexpen SUBQ SCH ×3 (06:41→17:39)
[2017-02-13 07:17] LABS: BASOPHILS % (AUTO) 0.7 % (0.0-2.0); EOSINOPHILS % (AUTO) 2.8 % (0.0-3.0); LYMPHOCYTES % (AUTO) 40.4 % (20.0-45.0); MEAN CORPUSCULAR HEMOGLOBIN 31.8 PG (27.0-31.0); MEAN CORPUSCULAR HGB CONC 35.3 G/DL (32.0-36.0); MEAN CORPUSCULAR VOLUME 90 FL (80-99); MEAN PLATELET VOLUME 7.8 FL (6.5-10.1); MONOCYTES % (AUTO) 9.9 % (1.0-10.0); NEUTROPHILS % (AUTO) 46.2 % (45.0-75.0); PLATELET COUNT 119 K/UL (150-450); RED BLOOD COUNT 4.77 M/UL (4.70-6.10); RED CELL DISTRIBUTION WIDTH 11.3 % (11.6-14.8); WHITE BLOOD COUNT 4.8 K/UL (4.8-10.8)
[2017-02-13 07:27] LABS: ANION GAP 15 (5-15); CARBON DIOXIDE 21 mEQ/L (20-30); CHLORIDE 102 mEQ/L (98-107); CREATININE 0.9 mg/dL (0.7-1.2); GLOMERULAR FILTRATION RATE > 60 mL/min (>60); HEMOLYSIS 8; POTASSIUM 4.9 mEQ/L (3.4-4.9); SODIUM 138 mEQ/L (135-145)
[2017-02-13 08:00] VITALS: BP 123/71
[2017-02-13] MEDS: Lisinopril 10mg tab ORAL SCH (09:08)
[2017-02-13] MEDS: Levemir Flexpen SUBQ SCH (11:30)
[2017-02-13 12:00] VITALS: BP 113/73
--- NOTE | 2017-02-13 12:50 | GI Progress Note ---
Assessment/Plan Problems: (1) Leukopenia ICD Codes: D72.819 - Decreased white blood cell count, unspecified SNOMED: 61425680 (2) Abdominal pain ICD Codes: R10.9 - Unspecified abdominal pain SNOMED: 32647883 (3) Diarrhea ICD Codes: R19.7 - Diarrhea, unspecified SNOMED: 33363282 (4) Sepsis ICD Codes: A41.9 - Sepsis, unspecified organism SNOMED: 08300257 Status: stable, progressing Status Narrative Discussed with Dr. Perez Assessment/Plan APCT reviewed >> unremarkable cdiff negative OB stool negative HIV negative abdominal U/S >> fatty liver stool culture >> PSEUDOMONAS AERUGINOSA contact precautions dc'd >> NO Salmonella vs Shigella, see ID note. symptomatic tx at this time adv diet ADA IV hydration + electrolyte replacement pain mgmt abx per ID ppi fu labs outpatient GI procedures Subjective Subjective abdominal pain diarrhea improved Objective Last 24 Hour Vital Signs Date Time Temp Pulse Resp B/P Pulse Ox O2 Delivery O2 Flow Rate FiO2 02/13/17 12:00 97.2 73 20 113/73 97 Room Air 02/13/17 09:08 123/71 02/13/17 08:00 97.3 77 20 123/71 96 Room Air 02/13/17 07:38 74 18 Room Air 02/13/17 04:00 97.7 82 20 129/79 95 02/13/17 00:00 97.8 87 20 122/70 97 Room Air 02/12/17 20:00 98.8 80 20 118/51 92 Room Air 02/12/17 19:51 70 18 Room Air 02/12/17 16:00 98.2 67 20 106/60 98 Room Air Intake and Output 02/12/17 02/13/17 19:00 07:00 Intake Total 1235.833 ml 1076.666 ml Balance 1235.833 ml 1076.666 ml Intake Oral 300 ml IV Total 935.833 ml 1076.666 ml # Voids 4 1 Laboratory Tests Test 02/13/17 05:45 White Blood Count 4.8 K/UL (4.8-10.8) Red Blood Count 4.77 M/UL (4.70-6.10) Hemoglobin 15.1 G/DL (14.2-18.0) Hematocrit 42.9 % (42.0-52.0) Mean Corpuscular Volume 90 FL (80-99) Mean Corpuscular Hemoglobin 31.8 PG (27.0-31.0) H Mean Corpuscular Hemoglobin Concent 35.3 G/DL (32.0-36.0) Red Cell Distribution Width 11.3 % (11.6-14.8) L Platelet Count 119 K/UL (150-450) L Mean Platelet Volume 7.8 FL (6.5-10.1) Neutrophils (%) (Auto) 46.2 % (45.0-75.0) Lymphocytes (%) (Auto) 40.4 % (20.0-45.0) Monocytes (%) (Auto) 9.9 % (1.0-10.0) Eosinophils (%) (Auto) 2.8 % (0.0-3.0) Basophils (%) (Auto) 0.7 % (0.0-2.0) Erythrocyte Sedimentation Rate 19 MM/HR (0-20) Sodium Level 138 mEQ/L (135-145) Potassium Level 4.9 mEQ/L (3.4-4.9) Chloride Level 102 mEQ/L (98-107) Carbon Dioxide Level 21 mEQ/L (20-30) Anion Gap 15 (5-15) Blood Urea Nitrogen 9 mg/dL (7-23) Creatinine 0.9 mg/dL (0.7-1.2) Estimat Glomerular Filtration Rate > 60 mL/min (>60) Glucose Level 191 mg/dL (74-106) #H Calcium Level 8.0 mg/dL (8.6-10.2) L Microbiology Date/Time Source Procedure Growth Status 02/12/17 15:15 Urine,Clean Catch Urine Culture - Preliminary NO GROWTH Resulted Height (Feet): 5 Height (Inches): 6.00 Weight (Pounds): 173 General Appearance: no apparent distress, alert Cardiovascular: normal rate Respiratory/Chest: normal breath sounds, no respiratory distress Abdominal Exam: normal bowel sounds, non tender, soft Extremities: normal range of motion Lexii Head N.P. Feb 13, 2017 12:50
[2017-02-13 16:00] VITALS: BP 118/59
[2017-02-13] MEDS ORDERED: Tubing IV Secondary IV ONE (17:16)
--- NOTE | 2017-02-13 17:58 | Infectious Diseases Prog Note ---
Assessment/Plan Assessment/Plan A: The patient is a 51-year-old Fever ? soruce ? viral , improved before the new AB Rx repeat CT C/A/ : no abscess UA showed WBC of 0 to 2 Chest x-ray: NAPD Thrombocytopenia Leukopenia Chills , SP Abdominal pain, nausea, and vomiting, SP Diarrhea : Stool cx ( PSA no clinical significance ) , no evidence of Salmonella vs Shigella Genit lesions ? HSV HIV Neg ESR and CRP : Nl Phimosis DM2 P: cont merrem and Vanco d# 2 , will Dc on Levaquin x 5 days SP Zosyn d# 4 Cont Valtrex d# 2 SP vancomycin d# 3 Monitor cultures ( Bl , Ur ) Monitor CBC Monitor BMP Monitor Cx- Ray following DC Contact iso 2D Echo Subjective Constitutional: Denies: anorexia, chills, drenching sweats, fatigue, fever, no symptoms, other Allergies: Coded Allergies: No Known Allergies (Verified Allergy, Mild, 10/16/07) Subjective fever Objective Vital Signs Last 24 Hour Vital Signs Date Time Temp Pulse Resp B/P Pulse Ox O2 Delivery O2 Flow Rate FiO2 02/13/17 16:00 97.5 79 20 118/59 95 Room Air 02/13/17 12:00 97.2 73 20 113/73 97 Room Air 02/13/17 09:08 123/71 02/13/17 08:00 97.3 77 20 123/71 96 Room Air 02/13/17 07:38 74 18 Room Air 02/13/17 04:00 97.7 82 20 129/79 95 02/13/17 00:00 97.8 87 20 122/70 97 Room Air 02/12/17 20:00 98.8 80 20 118/51 92 Room Air 02/12/17 19:51 70 18 Room Air Height (Feet): 5 Height (Inches): 6.00 Weight (Pounds): 173 HEENT: anicteric Respiratory/Chest: no respiratory distress Cardiovascular: regular rhythm Abdomen: no organomegaly Microbiology Date/Time Source Procedure Growth Status 02/12/17 15:15 Urine,Clean Catch Urine Culture - Preliminary NO GROWTH Resulted Laboratory Tests Test 02/13/17 05:45 White Blood Count 4.8 K/UL (4.8-10.8) Red Blood Count 4.77 M/UL (4.70-6.10) Hemoglobin 15.1 G/DL (14.2-18.0) Hematocrit 42.9 % (42.0-52.0) Mean Corpuscular Volume 90 FL (80-99) Mean Corpuscular Hemoglobin 31.8 PG (27.0-31.0) H Mean Corpuscular Hemoglobin Concent 35.3 G/DL (32.0-36.0) Red Cell Distribution Width 11.3 % (11.6-14.8) L Platelet Count 119 K/UL (150-450) L Mean Platelet Volume 7.8 FL (6.5-10.1) Neutrophils (%) (Auto) 46.2 % (45.0-75.0) Lymphocytes (%) (Auto) 40.4 % (20.0-45.0) Monocytes (%) (Auto) 9.9 % (1.0-10.0) Eosinophils (%) (Auto) 2.8 % (0.0-3.0) Basophils (%) (Auto) 0.7 % (0.0-2.0) Erythrocyte Sedimentation Rate 19 MM/HR (0-20) Sodium Level 138 mEQ/L (135-145) Potassium Level 4.9 mEQ/L (3.4-4.9) Chloride Level 102 mEQ/L (98-107) Carbon Dioxide Level 21 mEQ/L (20-30) Anion Gap 15 (5-15) Blood Urea Nitrogen 9 mg/dL (7-23) Creatinine 0.9 mg/dL (0.7-1.2) Estimat Glomerular Filtration Rate > 60 mL/min (>60) Glucose Level 191 mg/dL (74-106) #H Calcium Level 8.0 mg/dL (8.6-10.2) L Current Medications Medications (Trade) Dose Ordered Sig/Lm Route PRN Reason Start Time Stop Time Status Last Admin Dose Admin Acetaminophen (Tylenol) 650 mg Q4H PRN ORAL fever 02/09/17 15:30 03/11/17 15:29 02/11/17 20:53 Al Hydroxide/Mg Hydroxide (Mylanta II) 30 ml Q6H PRN ORAL dyspepsia 02/09/17 19:30 03/11/17 19:29 Albuterol/ Ipratropium (DuoNeb 0.5-3(2.5)mg/3ml) 3 ml Q4H PRN HHN Shortness of Breath 02/09/17 15:30 02/14/17 15:29 Clonidine HCl (Catapres) 0.1 mg Q4H PRN ORAL sbp more than 160 02/09/17 15:30 03/11/17 15:29 Dextrose (Dextrose 50%) STAT PRN IV Hypoglycemia 02/09/17 19:30 03/11/17 19:29 Insulin Aspart (NovoLOG) BEFORE MEALS AND HS SUBQ 02/09/17 16:30 03/11/17 16:29 02/13/17 17:39 Insulin Detemir (Levemir) 20 units Q24H SUBQ 02/10/17 11:30 03/12/17 11:29 02/12/17 11:44 Ketorolac Tromethamine (Toradol 30mg) 30 mg Q6H PRN IV moderate pain 4-6 02/09/17 19:30 02/14/17 19:29 Lisinopril (Zestril) 10 mg DAILY ORAL 02/10/17 09:00 03/12/17 08:59 02/13/17 09:08 Meropenem/Sodium Chloride (Merrem/Sodium Chloride) 110 ml @ 220 mls/hr Q8HR IVPB 02/12/17 14:00 02/17/17 13:59 02/13/17 14:21 Morphine Sulfate (Morphine Sulfate) 2 mg Q4H PRN IVP severe pain 7-10 02/09/17 15:30 02/16/17 15:29 02/10/17 12:18 Nitroglycerin (Ntg) 0.4 mg Q5M X 3 DOSES PRN SL Prn Chest Pain 02/09/17 14:45 03/11/17 14:44 Ondansetron HCl (Zofran) 4 mg Q6H PRN IVP Nausea & Vomiting 02/09/17 19:30 03/11/17 19:29 Polyethylene Glycol (Miralax) 17 gm HSPRN PRN ORAL Constipation 02/09/17 19:30 03/11/17 19:29 Ranitidine HCl (Zantac) 150 mg TWICE A DAY ORAL 02/09/17 18:00 03/11/17 17:59 02/13/17 17:32 Sodium Chloride (Sodium Chloride 1000ml bag) 1,000 ml @ 75 mls/hr [id number] IVLG 02/09/17 15:00 03/11/17 14:59 02/13/17 12:29 Temazepam (Restoril) 15 mg HSPRN PRN ORAL Insomnia 02/09/17 19:30 02/16/17 19:29 Valacyclovir HCl 1000 mg 1,000 mg EVERY 12 HOURS ORAL 02/11/17 14:00 03/13/17 13:59 02/13/17 09:08 Vancomycin HCl 1 ea 1 ea DAILY PRN MISC Per rx protocol 02/12/17 11:45 03/14/17 11:44 Vancomycin HCl/ Dextrose (Vancomycin/D5W) 275 ml @ 183.333 mls/hr Q12HR@0300,1500 IVPB 02/12/17 15:00 02/17/17 14:59 02/13/17 15:37 PAKO MORA M.D. Feb 13, 2017 17:58
--- NOTE | 2017-02-13 18:09 | Pulmonology Progress Note ---
Assessment/Plan Problems: (1) Sepsis (2) Hyperglycemia (3) Diabetes (4) Fever (5) Abdominal pain Assessment/Plan fever coming down' wbc lower no obvious source of sepsis sliding scale ok to dc home when ok with ID Subjective ROS Limited/Unobtainable: No Constitutional: Reports: no symptoms HEENT: Repors: no symptoms Allergies: Coded Allergies: No Known Allergies (Verified Allergy, Mild, 10/16/07) Objective Last 24 Hour Vital Signs Date Time Temp Pulse Resp B/P Pulse Ox O2 Delivery O2 Flow Rate FiO2 02/13/17 16:00 97.5 79 20 118/59 95 Room Air 02/13/17 12:00 97.2 73 20 113/73 97 Room Air 02/13/17 09:08 123/71 02/13/17 08:00 97.3 77 20 123/71 96 Room Air 02/13/17 07:38 74 18 Room Air 02/13/17 04:00 97.7 82 20 129/79 95 02/13/17 00:00 97.8 87 20 122/70 97 Room Air 02/12/17 20:00 98.8 80 20 118/51 92 Room Air 02/12/17 19:51 70 18 Room Air Intake and Output 02/12/17 02/13/17 19:00 07:00 Intake Total 1235.833 ml 1076.666 ml Balance 1235.833 ml 1076.666 ml Intake Oral 300 ml IV Total 935.833 ml 1076.666 ml # Voids 4 1 General Appearance: WD/WN HEENT: normocephalic, atraumatic Respiratory/Chest: chest wall non-tender, lungs clear Cardiovascular: normal peripheral pulses, normal rate Abdomen: normal bowel sounds, soft, non tender Genitourinary: normal external genitalia Extremities: no cyanosis Skin: no rash 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 Lymphatic: no neck adenopathy, no groin adenopathy Microbiology Date/Time Source Procedure Growth Status 02/12/17 15:15 Urine,Clean Catch Urine Culture - Preliminary NO GROWTH Resulted Laboratory Tests 02/13/17 05:45: White Blood Count 4.8, Red Blood Count 4.77, Hemoglobin 15.1, Hematocrit 42.9, Mean Corpuscular Volume 90, Mean Corpuscular Hemoglobin 31.8H, Mean Corpuscular Hemoglobin Concent 35.3, Red Cell Distribution Width 11.3L, Platelet Count 119L , Mean Platelet Volume 7.8, Neutrophils (%) (Auto) 46.2, Lymphocytes (%) (Auto) 40.4, Monocytes (%) (Auto) 9.9, Eosinophils (%) (Auto) 2.8, Basophils (%) (Auto ) 0.7, Erythrocyte Sedimentation Rate 19, Sodium Level 138, Potassium Level 4.9 , Chloride Level 102, Carbon Dioxide Level 21, Anion Gap 15, Blood Urea Nitrogen 9, Creatinine 0.9, Estimat Glomerular Filtration Rate > 60, Glucose Level 191#H, Calcium Level 8.0L Current Medications Medications (Trade) Dose Ordered Sig/Lm Route PRN Reason Start Time Stop Time Status Last Admin Dose Admin Acetaminophen (Tylenol) 650 mg Q4H PRN ORAL fever 02/09/17 15:30 03/11/17 15:29 02/11/17 20:53 Al Hydroxide/Mg Hydroxide (Mylanta II) 30 ml Q6H PRN ORAL dyspepsia 02/09/17 19:30 03/11/17 19:29 Albuterol/ Ipratropium (DuoNeb 0.5-3(2.5)mg/3ml) 3 ml Q4H PRN HHN Shortness of Breath 02/09/17 15:30 02/14/17 15:29 Clonidine HCl (Catapres) 0.1 mg Q4H PRN ORAL sbp more than 160 02/09/17 15:30 03/11/17 15:29 Dextrose (Dextrose 50%) STAT PRN IV Hypoglycemia 02/09/17 19:30 03/11/17 19:29 Insulin Aspart (NovoLOG) BEFORE MEALS AND HS SUBQ 02/09/17 16:30 03/11/17 16:29 02/13/17 17:39 Insulin Detemir (Levemir) 20 units Q24H SUBQ 02/10/17 11:30 03/12/17 11:29 02/12/17 11:44 Ketorolac Tromethamine (Toradol 30mg) 30 mg Q6H PRN IV moderate pain 4-6 02/09/17 19:30 02/14/17 19:29 Lisinopril (Zestril) 10 mg DAILY ORAL 02/10/17 09:00 03/12/17 08:59 02/13/17 09:08 Meropenem/Sodium Chloride (Merrem/Sodium Chloride) 110 ml @ 220 mls/hr Q8HR IVPB 02/12/17 14:00 02/17/17 13:59 02/13/17 14:21 Morphine Sulfate (Morphine Sulfate) 2 mg Q4H PRN IVP severe pain 7-10 02/09/17 15:30 02/16/17 15:29 02/10/17 12:18 Nitroglycerin (Ntg) 0.4 mg Q5M X 3 DOSES PRN SL Prn Chest Pain 02/09/17 14:45 03/11/17 14:44 Ondansetron HCl (Zofran) 4 mg Q6H PRN IVP Nausea & Vomiting 02/09/17 19:30 03/11/17 19:29 Polyethylene Glycol (Miralax) 17 gm HSPRN PRN ORAL Constipation 02/09/17 19:30 03/11/17 19:29 Ranitidine HCl (Zantac) 150 mg TWICE A DAY ORAL 02/09/17 18:00 03/11/17 17:59 02/13/17 17:32 Sodium Chloride (Sodium Chloride 1000ml bag) 1,000 ml @ 75 mls/hr [id number] IVLG 02/09/17 15:00 03/11/17 14:59 02/13/17 12:29 Temazepam (Restoril) 15 mg HSPRN PRN ORAL Insomnia 02/09/17 19:30 02/16/17 19:29 Valacyclovir HCl 1000 mg 1,000 mg EVERY 12 HOURS ORAL 02/11/17 14:00 03/13/17 13:59 02/13/17 09:08 Vancomycin HCl 1 ea 1 ea DAILY PRN MISC Per rx protocol 02/12/17 11:45 03/14/17 11:44 Vancomycin HCl/ Dextrose (Vancomycin/D5W) 275 ml @ 183.333 mls/hr Q12HR@0300,1500 IVPB 02/12/17 15:00 02/17/17 14:59 02/13/17 15:37 HORACIO CORONADO Feb 13, 2017 18:09
[2017-02-13] MEDS ORDERED: LEVAQUIN750 MG ORAL (18:46)
--- NOTE | 2017-02-14 11:01 | Diagnostic Imaging Report ---
\H\CT THORAX \N\ Indications: Chest pain Technique: Continuous helical CT imaging of the thorax and upper abdomen was performed with automatic exposure control following intravenous administration of nonionic iodine contrast, on a Siemens sensation [address] scanner. Axial, coronal, and sagittal images were reconstructed at 5 mm slice thickness. CTDI volume(s): 8, 65, 17, 14 mGy Total DLP: 1542 mGy-cm (Includes CT abdomen pelvis) Findings: Comparison: None Small pleural-based linear density in the superior segment of lower lobe of right lung. Lungs normally, symmetrically inflated and otherwise clear. No pleural abnormality. Heart normal size. No pericardial abnormality. Small mediastinal lymph nodes to 15 mm diameter. Central mediastinal vasculature unremarkable. Chest wall soft tissues nonfocal. Small disc marginal osteophytes in thoracic spine. IMPRESSION: Focal subsegmental atelectasis versus scarring superior segment right lower lobe Very mild degenerative spondylosis Otherwise negative \H\CT ABDOMEN PELVIS\N\ Indications: Abdominal pain, nausea and vomiting Technique: Continuous helical CT imaging of the abdomen and pelvis was performed with automatic exposure control following administration of oral and intravenous nonionic iodine contrast, on a Siemens sensation [address] scanner. Axial, coronal, and sagittal images were reconstructed at 5 mm slice thickness. CTDI volume(s): As above mGy Total DLP: As above mGy-cm Findings: Comparison: 02/07/2017, 10/01/2016, 01/22/2010, 05/29/2006 Oral contrast has passed throughout the gastrointestinal tract the rectum. Entire tract remains nondilated. No obvious mural thickening, adjacent stranding, extraluminal gas or fluid collections. Liver, gallbladder, pancreas, spleen, accessory splenule in abdominal left upper quadrant, adrenal glands, kidneys, unopacified ureters and urinary bladder, prostate, seminal vesicles, vascular structures, retroperitoneum, mesentery, remainder visualized abdominopelvic anatomy remain unremarkable in appearance. Multilevel disc space narrowing with annular bulge, marginal osteophyte formation, vacuum phenomenon again noted in lumbar spine with significant spinal stenosis at L4-5, unchanged. IMPRESSION: No evidence of acute abdominopelvic disease, unchanged from 6 days prior Degenerative spondylosis with spinal stenosis, stable
--- NOTE | 2017-02-14 11:25 | Discharge Summary ---
Discharge Summary Hospital Course Date of Admission Feb 07, 2017 at 19:17 Date of Discharge Feb 13, 2017 at 19:52 Admitting Diagnosis sepsis HPI Phill Muhammad is a 51 year old male who was admitted on Feb 07, 2017 at 19:17 for Sepsis Hospital Course [id number] Discharge Discharge Disposition Patient was discharged to Home (01) Discharge Diagnoses: Sarah Sanches CLAIM PROCESSOR Feb 14, 2017 11:25
--- NOTE | 2017-02-15 01:30 | Discharge Summary 2 SIG ---
DATE OF ADMISSION: 02/07/2017 DATE OF DISCHARGE: 02/13/2017 CONSULTANTS: 1. Biju Oliver M.D. 2. Rj Perez M.D. 3. Juan Meléndez M.D. BRIEF HOSPITAL COURSE: The patient is a 51-year-old patient who walked in to ED complaining of 2 days abdominal pain with fever, chills, nausea, and vomiting and claimed to have not had any bowel movement for two days. He has history of diabetes and ran out of his prescriptions. On evaluation at ED, he presented with fever, temp 102, tachypnea, and tachycardia. Tachycardia improved with analgesia and IV hydration. There was no leukocytosis. Blood sugar was elevated to 369 with stable bicarbonate, mildly elevated anion gap, and 2+ ketones in the urine. Urinalysis was negative for UTI. Chest x-ray was negative for acute cardiopulmonary pathology. Sodium was 127. He was admitted for possible sepsis and hyperglycemia and hyponatremia, and blood sugars were monitored, and was given Levemir and sliding scale of NovoLog. Hemoglobin A1c was 11. He was given IV hydration and was started on vancomycin and Zosyn. He presented with abdominal pain and diarrhea. Abdominal and pelvic CT showed minimal residual stranding of the subcutaneous soft tissue in the right flank with no drainable fluid collection. He underwent abdominal ultrasound, which showed hepatic steatosis and splenomegaly. Gallbladder was unremarkable. HIV was negative. Stool C. difficile was negative. Stool culture was negative for Salmonella and Shigella, however, showed gram-negative bacillus. There was growth of pseudomonas with no clinical significance. The patient had genital lesions, questionable HSV, and was started on Valtrex. There was no obvious source of sepsis. Fever was coming down. Dr. Meléndez was consulted for evaluation of phimosis and recommended once the patient has been discharged home and once improved, he can follow up with a urologist for an elective circumcision. He was eventually discharged home to continue levofloxacin 750 mg for five more days. FINAL DIAGNOSES: 1. Sepsis/systemic inflammatory response syndrome. 2. Genital lesion, possible herpes simplex virus. 3. Phimosis. 4. Diabetes mellitus type 2, out of control. 5. Thrombocytopenia. 6. Leukopenia. 7. Diarrhea. Obey Arias M.D. I have been assigned to dictate discharge summary on this account and I was not involved in the patient's management. Sarah Sanches N.P. DR: AMRIT JOB#: [id number] CC: ADEN
== END 2017-02-13 19:52 | disposition home or self-care (01) | DRG 720 ==
LOC: EMR 17:56 → EDBEDREQ 18:49 → 2E 19:17 → 3E 02-09 14:26 → 4E 02-11 15:35
DX: A41.9 Sepsis, unspecified organism (principal); E11.65 Type 2 diabetes mellitus with hyperglycemia; D69.6 Thrombocytopenia, unspecified; A60.00 Herpesviral infection of urogenital system, unspecified; N47.1 Phimosis; I10 Essential (primary) hypertension; R19.7 Diarrhea, unspecified; Z79.4 Long term (current) use of insulin; E87.1 Hypo-osmolality and hyponatremia; E78.5 Hyperlipidemia, unspecified; R10.9 Unspecified abdominal pain
CPT/HCPCS: 36415; 71010; 71260; 74177; 76700; 80048; 80053; 80061; 80202; 81003; 82270; 82962; 83036; 83605; 83690; 84443; 84484; 85007; 85025; 85651; 86140; 86703; 87040; 87045; 87086; 87181; 87324; 93005; 93306; 93970; 94664; J1815; J2405; S5561

== ENCOUNTER 2019-05-17 05:45 | Day surgery (SDC) | payer MEDICAID ==
--- NOTE | 2019-05-12 12:03 | Opthalmology H&P ---
Ophthalmology H&P H&P Chief Complaint: decreased vision in left eye HPI Vision Affects Ability to: read Past Ocular History: retinal problems - PDR/ME OU, Retinal hemorrhage OU, Retinal Ischemia OU, HPI Narrative Blurry vision/ Constant floaters obstructing vision Exam Visual Acuity: OD 20/100 OS Counting fingers @ 1 ft Tension: OD 12 OS 12 Eye Exam: normal OU: external exam, palpebral fissure-width, marginal reflex distance, levator function, corneas, anterior chambers, lens - NS/CC Cataracts OU, fundus exam - Retinal hem. OU; findings: lens - NS/CC Cataracts OU, fundus exam - Retinal hem. OU Assessment/Plan Treatment Plan: other - Pars plana vitrectomy with endolaser Goals of Treatment: improvement of vision, enhance quality of life Attestation Attestation The risks and benefits of the surgery as well as alternative procedures were explained to the patient in detail. Williams Winklre MD May 12, 2019 12:03
--- NOTE | 2019-05-12 12:06 | Pre-Procedure Note/Attestation ---
Pre-Procedure Note/Attestation Complete Prior to Procedure Planned Procedure: left Procedure Narrative: Pars plana vitrectomy with endolaser left eye Indications for Procedure Pre-Operative Diagnosis: Retinal Hemorrhage left eye Attestation I attest that I discussed the nature of the procedure; its benefits; risks and complications; and alternatives (and the risks and benefits of such alternatives ), prior to the procedure, with the patient (or the patient's legal medical center representative). I attest that, if there was a reasonable possibility of needing a blood transfusion, the patient (or the patient's legal medical center representative) was given the [facility] standardized written summary, pursuant to the [place] Blood Safety Act ([place] Health and Safety Code # 1645, as amended). I attest that I re-evaluated the patient just prior to the surgery and that there has been no change in the patient's H&P, except as documented below: Williams Winkler MD May 12, 2019 12:06
[~2019-05-17] VITALS: Ht 165.1 cm; Wt 74.8 kg
[2019-05-17] VITALS (8 sets, daily range): BP systolic 120–141; BP diastolic 75–91
[~2019-05-17 05:45] MED LIST changes: +LEVAQUIN750 MG ORAL
[2019-05-17] MEDS ORDERED: Diclofenac Sod 0.1% Op Soln LEFT EYE SCH (07:00)
[2019-05-17] MEDS ORDERED: Tetracaine 0.5% Opth 4ml Soln LEFT EYE ONE (07:00)
[2019-05-17] MEDS ORDERED: Proparacaine 0.5% Opth Soln 15ml LEFT EYE ONE (07:00)
[2019-05-17] MEDS ORDERED: Akten 3.5% 1ml Btl LEFT EYE ONE (07:00)
[2019-05-17] MEDS: Tropicamide 1% Opth 15ml Soln LEFT EYE SCH ×3 (07:44→08:04)
[2019-05-17] MEDS: Phenylephrine 10% Opth Soln 5ml LEFT EYE SCH ×3 (07:44→08:04)
[2019-05-17] MEDS: Cyclopentolate 1% Opth Sol 2ml LEFT EYE SCH ×3 (07:44→08:04)
[2019-05-17] MEDS: Tobramycin Op Soln 0.3% 5ml LEFT EYE SCH ×3 (07:45→08:05)
[2019-05-17] MEDS ORDERED: LR 1000ml 1,000 ML IVLG SCH (07:49)
--- NOTE | 2019-05-17 07:49 | Anethesia Preoperative Eval ---
Anesthesia Pre-op PMH/ROS General Date of Evaluation: May 17, 2019 Anesthesiologist: Margarito ASA Score: ASA 2 Mallampati Score Class I : Soft palate, uvula, fauces, pillars visible Class II: Soft palate, uvula, fauces visible Class III: Soft palate, base of uvula visible Class IV: Only hard plate visible Mallampati Classification: Class II Surgeon: Cathi Diagnosis: Left eye vitreous hemorrhage Surgical Procedure: Left eye vitrectomy Anesthesia History: none Family History: no anesthesia problems Allergies: Coded Allergies: No Known Allergies (Verified Allergy, Mild, 10/16/07) Medications: see eMAR Patient NPO?: Yes NPO Date: May 16, 2019 NPO Time: 22:00 Past Medical History Cardiovascular: Denies: HTN, CAD, RI, valve dz, arrhythmia, other Pulmonary: Denies: asthma, COPD, RICHA, other Gastrointestinal/Genitourinary: Denies: GERD, CRI, ESRD, other Neurologic/Psychiatric: Denies: dementia, CVA, depression/anxiety, TIA, other Endocrine: Reports: DM; Denies: hypothyroidism, steroids, other HEENT: Denies: cataract (L), cataract (R), glaucoma, [facility] (L), [facility] (R), other Hematology/Immune: Denies: anemia, DVT, bleeding disorder, other Musculoskeletal/Integumentary: Denies: OA, RA, DJD, DDD, edema, other PSxH Narrative: Denies Anesthesia Pre-op Phys. Exam Physician Exam Last Vital Signs Date Time Temp Pulse Resp B/P (MAP) Pulse Ox O2 Delivery O2 Flow Rate FiO2 05/17/19 07:37 97.8 70 20 131/80 99 Room Air Constitutional: NAD Cardiovascular: RRR Respiratory: CTA Airway Exam Mallampati Score: Class II MO: full ROM: full Anesthesia Pre-op A/P Labs see chart Studies Pre-op Studies: EKG - sr Risk Assessment & Plan Assessment: ASA II Plan: MAC Status Change Before Surgery: No Pre-Antibiotics Drug: N/A Ilda Rodríguez MD May 17, 2019 07:49
[2019-05-17] MEDS ORDERED: [UNRECOGNIZED DRUG - OTHER] (07:53)
[2019-05-17] MEDS ORDERED: HUMALOG100 UNIT/4 SUBQ (07:53)
[2019-05-17] MEDS ORDERED: BASAGLAR SUBQ (07:53)
[2019-05-17] MEDS ORDERED: DiphenhydrAMINE 50mg/ml Inj IVP PRN (08:00)
[2019-05-17] MEDS ORDERED: Lidocaine 1% MPF 10mg/ml 5ml ONE (08:05)
[2019-05-17] MEDS ORDERED: fentaNYL 100 mcg/2 mL IV ONE ×2 (08:05→09:10)
[2019-05-17] MEDS ORDERED: Midazolam 2mg/2ml Inj ONE (08:05)
[2019-05-17] MEDS ORDERED: LR 1000ml ONE (08:30)
[2019-05-17] MEDS ORDERED: NS Irrig 1000ml ONE (08:30)
[2019-05-17] MEDS ORDERED: Pilocarpine 1% Opth 15ml Soln ONE (08:30)
[2019-05-17] MEDS ORDERED: Sterile Water Irrig 1000ml IRRIG ONE (08:30)
[2019-05-17] MEDS ORDERED: Pred Forte 1% Opth Susp 1ml ONE (08:30)
[2019-05-17] MEDS ORDERED: BSS 15ml BTL ONE (08:35)
[2019-05-17] MEDS ORDERED: Lidocaine 2% MPF 5ml Vial INJ ONE ×2 (08:35→09:17)
[2019-05-17] MEDS ORDERED: Polysporin Opth Oint 3.5gm ONE (08:35)
[2019-05-17] MEDS ORDERED: Povidone-Iodine 5% opth solution ONE (08:35)
[2019-05-17] MEDS ORDERED: BSS 500ml btl ONE (08:35)
[2019-05-17] MEDS ORDERED: EPINEPHrine 1mg/1ml Amp ONE (08:35)
[2019-05-17] MEDS ORDERED: Bupivacaine 0.75% 30ml vial INJ ONE (08:36)
[2019-05-17] MEDS ORDERED: Kenalog-10 5ml Inj ONE (08:37)
[2019-05-17] MEDS ORDERED: Kenalog-40 1ml Vial ONE (08:37)
[2019-05-17] MEDS ORDERED: Propofol 200mg/20ml IV ONE (08:48)
--- NOTE | 2019-05-17 09:59 | Immediate Post-Op Evaluation ---
Immediate Post-Op Evalulation Immediate Post-Op Evalulation Procedure: Left eye vitrectomy Date of Evaluation: May 17, 2019 Time of Evaluation: 10:01 IV Fluids: 300 Blood Products: 0 Estimated Blood Loss: 0 Urinary Output: 0 Blood Pressure Systolic: 129 Blood Pressure Diastolic: 83 Pulse Rate: 68 Respiratory Rate: 16 O2 Sat by Pulse Oximetry: 95 Temperature (Fahrenheit): 97 Pain Score (1-10): 0 Nausea: No Vomiting: No Complications 0 Patient Status: awake, reacts, patent, none Hydration Status: adequate Drug: N/A Ilda Rodríguez MD May 17, 2019 09:59
--- NOTE | 2019-05-17 10:00 | 48 Hour Post Anesthesia Eval ---
Post Anesthesia Evaluation Procedure: Left eye vitrectomy Date of Evaluation: May 17, 2019 Airway: patent Nausea: No Vomiting: No Pain Intensity: 0 Hydration Status: adequate Cardiopulmonary Status: at baseline Mental Status/LOC: patient returned to baseline Post-Anesthesia Complications: 0 Follow-up care needed: ready to discharge Ilda Rodríguez MD May 17, 2019 10:00
--- NOTE | 2019-05-19 12:36 | Brief Operative Note ---
Immediate Post Operative Note Operative Note Chief Complaint: Blurry vison, constant floater obstructing vision os Pre-op Diagnosis: Retinal Hemorrhage left eye Procedure: Pars plana vitrectomy with endolaser left eye Post-op Diagnosis: same as pre-op Findings: consistent w/pre-op dx studies Surgeon: Williams Winkler MD Anesthesiologist: Ilda Gonzalez Anesthesia: MAC Specimen: none Complications: none Condition: stable Fluids: LR Estimated Blood Loss: none Drains: none Implant(s) used?: No Williams Winkler MD May 19, 2019 12:36
--- NOTE | 2019-05-19 12:40 | Operative Note - PDOC ---
Operative Note Operative Note Date of Operation/Procedure: May 17, 2019 Chief Complaint: Blurry vison, constant floater obstructing vision os Pre-op Diagnosis: Retinal Hemorrhage left eye Procedure: Pars plana vitrectomy with endolaser left eye Post-op Diagnosis: same as pre-op Operative Findings: consistent w/pre-op dx studies Surgeon: Williams Winkler MD Anesthesiologist: Ilda Gonzalez Anesthesia: MAC Specimen: none Complications: none Condition: stable Fluids: LR Estimated Blood Loss: none Drains: none Implant(s) used?: No Indications for Procedure Vitreous Hemorrhage left eye Description of Procedure :~ This patient has been complaining visually significant decrease in vision in the left eye with the best corrected visual acuity of counting fingers at 1 foot , under moderate glare conditions worse. The patient complains of difficulties in performing activities of daily living and wants to manage personal affairs with comfort and accuracy and see well enough to move with safety at home and outdoors. The risks, benefits and alternatives of the procedure were discussed with the patient in the office prior to scheduling surgery. All questions from the patient were answered after the surgical procedure was explained in detail. The risks of the procedure as explained to the patient include, but are not limited to, pain, infection, bleeding, loss of vision, retinal detachment, need for further surgery, double vision, etc. Alternative procedures were discussed which include, to do nothing or seek a second opinion. Informed consent for this procedure was obtained from the patient. The patient was referred to a primary care physician for a cardiopulmonary clearance prior to surgery, after proper evaluation was done patient was properly scheduled for outpatient surgery. The patient was brought to the operating room where the anesthesiologist established I.V. lines and cardiac monitoring leads. The patient was then prepped and draped in typical sterile fashion for ophthalmic surgery.~~ An G 23 trocar infusion cannula was inserted in the inferotemporal quadrant, approximately 4 mm posterior to the limbus.~ The infusion cannula was confirmed to be in appropriate position prior to initiating infusion.~ ~ The light pipe and the vitrector were inserted into the eye and a core vitrectomy was performed under wide field visualization.~ Therefore, the vitrectomy instrument was used to engage the posterior vitreous hemorrhage.~ Once this was done, the posterior heme was dissected using the vitrectomy instrument.~ Vitreous dissection was then extended out to the periphery as far as safely possible.~ Endolaser photocoagulation was then applied.~Good reaction was achieved. After adequate laser application was completed, indirect ophthalmoscopy was performed.~ The trocar was then removed.~~ After this was done, all the wounds were reinspected, confirmed to be well sealed and the eye had an appropriate intraocular pressure.~ ~ Antibiotic ointment was then placed in the eye.~ Then, the eye was patched in typical fashion for ophthalmologic surgery. The patient tolerated the procedure well and was transferred to the recovery room in good condition.~ Proper postoperative management was reviewed with the patient prior to discharge and advised to follow up the next day.. Williams Winkler MD May 19, 2019 12:40
== END 2019-05-17 10:55 | disposition home or self-care (01) ==
LOC: SUR 05:45
DX: H43.392 Other vitreous opacities, left eye (principal); H53.8 Other visual disturbances; Z79.82 Long term (current) use of aspirin; Z79.4 Long term (current) use of insulin
CPT/HCPCS: 67039; 82962; J0171; J2250; J2704; J3010; J3470; S0020; Z7512; 94003; 94150